=== PATIENT | female | born 1940 | race Caucasian/White ===

== ENCOUNTER → 2016-10-03 | Outpatient (CLI) | payer MEDICARE ==
[~2016-10-03] MED LIST: DILT120C49 PO
== END ==
LOC: CLAB 09:38
DX: R10.9 Unspecified abdominal pain (principal); R05 Cough; J44.9 Chronic obstructive pulmonary disease, unspecified
CPT/HCPCS: 87338

== ENCOUNTER 2017-01-02 08:53 | Day surgery (SDC) | payer MEDICARE ==
[~2017-01-02] VITALS: Ht 162.6 cm; Wt 45.5 kg
[~2017-01-02 08:53] MED LIST changes: +DILT-60 PO; -DILT120C49 PO
[2017-01-02] MEDS ORDERED: ONDANSETRON HCL 4 MG/2 ML VIAL IV PUSH ONE (08:56)
[2017-01-02] MEDS ORDERED: PROPOFOL 200 MG/20 ML AMP IV ONE (08:56)
[2017-01-02] MEDS ORDERED: POVIDONE IODINE 5% (ANTISEPSIS KIT) 4 APPLICATIONS EACH NARE PRN (09:15)
[2017-01-02] MEDS ORDERED: SODIUM CHLORID 0.9% 500 ML IV PRN (09:15)
[2017-01-02] MEDS ORDERED: METOPROLOL TARTRATE 25 MG TAB PO PRN (09:15)
[2017-01-02] MEDS ORDERED: LACTATED RINGER'S 1000 ML IV PRN (09:15)
[2017-01-02] MEDS ORDERED: CHLORHEXIDINE GLUCONATE 2 % 1 PACK (2 CLOTHS) TOPICAL PRN (09:15)
[2017-01-02] MEDS ORDERED: INSULIN HUMAN REGULAR 1,000 UNITS/10 ML VIAL SQ PRN (09:15)
[2017-01-02 09:45] VITALS: BP 167/77; PULSE 92; RESP 20; TEMP 98.4; O2SAT 94
[2017-01-02 10:12] LABS: BASOPHIL % 0.5 % (0.0-2.0); EOSINOPHIL # 0.1 TH/MM3 (0-0.4); EOSINOPHIL % 0.9 % (0.0-4.0); HEMATOCRIT 46.5 % (35.0-46.0); HEMO FLAGS DIFF FINAL; LYMPH % 28.9 % (9.0-44.0); MEAN CELL VOLUME 89.3 FL (80.0-100.0); MEAN CORPUSCULAR HEMOGLOBIN 29.4 PG (27.0-34.0); MEAN CORPUSCULAR HGB CONC 32.9 % (32.0-36.0); MONO % 11.8 % (0.0-8.0); NEUT % 57.9 % (16.0-70.0); PLATELET COUNT 191 TH/MM3 (150-450); RED BLOOD COUNT 5.21 MIL/MM3 (4.00-5.30); RED CELL DISTRIBUTION WIDTH 14.2 % (11.6-17.2); WHITE BLOOD COUNT 10.4 TH/MM3 (4.0-11.0)
[2017-01-02 10:20] LABS: APTT (PATIENT) 29.7 SEC (24.3-30.1); PROTHROMBIN TIME - PATIENT 10.6 SEC (9.8-11.6)
[2017-01-02 10:23] LABS: BICARBONATE 28.3 MEQ/L (21.0-32.0); POTASSIUM 3.4 MEQ/L (3.5-5.1)
[2017-01-02] MEDS ORDERED: FAMOTIDINE 20 MG/2 ML VIAL ONE (11:26)
[2017-01-02] MEDS ORDERED: LIDOCAINE HCL 1% 50 ML VIAL ONE (11:55)
[2017-01-02] MEDS ORDERED: DO NOT ADM ANY ANTICOAGULANT DRUGS PRN (12:10)
[2017-01-02] MEDS ORDERED: RESP: ALBUTEROL 2.5 MG/IPRATROPIUM 0.5 MG NEB (PRN) NEB (12:30)
--- NOTE | 2017-01-02 12:59 | MP ---
cc: FADY MOELLER MD, JOHN DATE OF PROCEDURE 01/02/2017 PROCEDURE Fiberoptic bronchoscopy with brushings, washings and lavage. PREOPERATIVE DIAGNOSIS Bronchiectasis with bilateral lung infiltrates. POSTOPERATIVE DIAGNOSIS Bilateral lung infiltrates. ANESTHESIA General with LMA. OPERATING PHYSICIAN Dr. Dilma Fernandez PROCEDURE AND FINDINGS The patient was sedated with IV Diprivan. LMA was used and placed against the larynx. The Olympus IT 180 bronchoscope was used to visualize the bronchi. The scope was advanced via the LMA into the trachea. The trachea and aleta appeared normal. The scope was then advanced into the right mainstem and right upper lobe segmental bronchi. These bronchi demonstrated no gross endobronchial lesions. There was mild endobronchitis with mucoid secretions and plugs; these were suctioned out. Next the scope was advanced into the right middle and right lower lobes and segmental bronchi. These bronchi demonstrated mucous plugs and moderate endobronchitis. No endobronchial lesions were seen. There is mucous secretions were suctioned. Saline washings and lavage were done. Brushings were done for micro and cytology from the right lower lobe area. The scope was then advanced into the left mainstem and left upper lobe segmental bronchi. These bronchi demonstrated mild endobronchitis with mucoid secretions. These were suctioned out. Saline washings were done. Next, the left lower lobe segmental bronchi were visualized which demonstrated mucosal edema and moderate endobronchitis. Saline lavage and washings were done and the procedure was then terminated. The patient tolerated the procedure well. MD KESHA Tee/MEHUL /12:27 PM /12:57 PM
--- NOTE | 2017-01-02 13:09 | RADRPT ---
EXAM DATE/TIME: 01/02/2017 12:31 [place] COMPARISON: No previous studies available for comparison. INDICATIONS : Post bronchoscopy, coughing MEDICAL HISTORY : SVT SURGICAL HISTORY : None. ENCOUNTER: Initial ACUITY: 1 day PAIN SCORE: 0/10 LOCATION: Bilateral chest FINDINGS: A single view of the chest demonstrates hyperinflation which can be seen with COPD. No infiltrates a re seen. Heart is normal in size. The mediastinal contours are unremarkable. Osseous structures are intact. CONCLUSION: Hyperinflation which can be seen with COPD. No evidence for an infiltrate. . Jordy Bill MD on January 02, 2017 at 13:06 Board Certified Radiologist. This report was verified electronically.
[2017-01-02 17:48] VITALS: BP 133/87; PULSE 113; RESP 18; TEMP 97.7; O2SAT 91
--- NOTE | 2017-01-02 19:53 | EKG ---
Date Performed: 01/02/2017 Time Performed: 10:10:39 PTAGE: 76 years EKG: Sinus rhythm POSSIBLE LEFT ATRIAL ENLARGEMENT POSSIBLE RIGHT VENTRICULAR CONDUCTION DELAY NONSPECIFIC ST & T-WAVE ABNORMALITY ABNORMAL ECG PREVIOUS TRACING : 01/21/2013 22.53 Since previous tracing, no significant change noted DOCTOR: Robyn Norris Interpretating Date/Time 01/02/2017 19:51:31
[2017-01-02 20:00] VITALS: BP 164/77; PULSE 111; RESP 20; TEMP 100.7; O2SAT 92
[2017-01-02] MEDS ORDERED: POTASSIUM CHLORIDE 20 MEQ CONTROLLED RELEASE TAB PO ONE (20:00)
[2017-01-02] MEDS ORDERED: DILTIAZEM-CD 120 MG CAP ER PO ONE (20:00)
[2017-01-02] MEDS: AMOXICILLIN/CLAVULANATE K 500 MG TAB PO SCH (20:17)
[2017-01-03] VITALS: BP 165/73; PULSE 124; RESP 20; TEMP 100.2; O2SAT 90
[2017-01-03 01:15] VITALS: BP 131/64; PULSE 114; RESP 18; O2SAT 95
[2017-01-03 04:00] VITALS: BP 113/64; PULSE 89; RESP 20; TEMP 97.1; O2SAT 92
[2017-01-03 07:57] VITALS: BP 117/56; PULSE 88; RESP 18; TEMP 97.8; O2SAT 92
[2017-01-03] MEDS: AMOXICILLIN/CLAVULANATE K 500 MG TAB PO SCH (08:05)
[2017-01-03 10:00] VITALS: O2SAT 94
[2017-01-03 12:18] VITALS: BP 121/65; PULSE 82; RESP 17; TEMP 98; O2SAT 95
[2017-01-03] MEDS ORDERED: AMOX500C PO (14:23)
[2017-01-03] MEDS ORDERED: DILTIAZEM-CD 120 MG CAP ER PO SCH (21:00)
== END 2017-01-03 15:05 | disposition home or self-care (01) ==
LOC: HSDC 08:53 → N05A 17:42 → HSDC 01-03 15:05
DX: J47.9 Bronchiectasis, uncomplicated (principal); R91.8 Other nonspecific abnormal finding of lung field; R94.31 Abnormal electrocardiogram [ECG] [EKG]
CPT/HCPCS: 00520; 31623; 31624; 71010; 80048; 85025; 85610; 85730; 87015; 87070; 87071; 87077; 87102; 87116; 87186; 87205; 87206; 88112; 93005; J2405

== ENCOUNTER → 2017-08-29 | Outpatient (CLI) | payer MEDICARE ==
[~2017-08-29] MED LIST changes: +AMOX500C PO; -DILT-60 PO; +DILT120C50 PO
[2017-08-29 10:05] LABS: HEMATOCRIT 46.2 % (35.0-46.0); HEMOGLOBIN 15.8 GM/DL (11.6-15.3); MEAN CORPUSCULAR HEMOGLOBIN 31.5 PG (27.0-34.0); MEAN CORPUSCULAR HGB CONC 34.3 % (32.0-36.0); MEAN PLATELET VOLUME 8.9 FL (7.0-11.0); PLATELET COUNT 193 TH/MM3 (150-450); RED BLOOD COUNT 5.02 MIL/MM3 (4.00-5.30); RED CELL DISTRIBUTION WIDTH 13.9 % (11.6-17.2); WHITE BLOOD COUNT 8.6 TH/MM3 (4.0-11.0)
[2017-08-29 10:28] LABS: ALT (GPT) 20 U/L (10-53); CHOLESTEROL 212 MG/DL (120-200)
[2017-08-29 10:29] LABS: ALBUMIN 3.9 GM/DL (3.4-5.0); AST (GOT) 28 U/L (15-37); BICARBONATE 26.3 MEQ/L (21.0-32.0); BLOOD UREA NITROGEN 21 MG/DL (7-18); CHLORIDE 104 MEQ/L (98-107); GLOMERULAR FILTRATION RATE 43 ML/MIN (>89); GLUCOSE,FASTING 104 MG/DL (74-99); SODIUM (NA) 141 MEQ/L (136-145)
[2017-08-29 10:38] LABS: ALKALINE PHOSPHATASE 95 U/L (45-117); CHOLESTEROL/ HDL RATIO 2.95 RATIO; HDL CHOLESTEROL 71.7 MG/DL (40.0-60.0); LDL CHOLESTEROL 125 MG/DL (0-99); TOTAL BILIRUBIN ADULT 0.9 MG/DL (0.2-1.0); TOTAL PROTEIN 8.1 GM/DL (6.4-8.2); TRIGLYCERIDES 75 MG/DL (42-150)
== END ==
LOC: CLAB 09:17
DX: J44.9 Chronic obstructive pulmonary disease, unspecified (principal); R06.00 Dyspnea, unspecified; R05 Cough; E03.9 Hypothyroidism, unspecified; I10 Essential (primary) hypertension
CPT/HCPCS: 36415; 80053; 80061; 84443; 85027

== ENCOUNTER 2018-03-15 17:56 | Inpatient (IN) ==
[2018-03-15] MEDS ORDERED: Morphine Sulfate Inj 2 MG/ML Vial IV.PUSH ONE (18:13)
--- NOTE | 2018-03-15 18:30 | ED ---
HPI General Chief Complaint: Respiratory Symptoms Stated Complaint: Fall / SOB Time Seen by Provider: 03/15/18 18:04 Source: patient Mode of arrival: ambulatory Limitations: no limitations History of Present Illness The patient is a 77-year-old female who presents to the emergency department via EMS for shortness of breath and left hip pain. The patient has a history of COPD and is followed by her primary physician/dough raiser, Dr. Elliott, who recently placed the patient on antibiotics via a right upper extremity PICC line. The patient states that the bacteria that is infecting her lungs started with the letters "C "and she is currently on Invanz once daily. The patient believes that the Invanz is making her shortness of breath worse. She does note increasing work of breathing and shortness of breath which was slightly improved with oxygen administered by EMS. EMS also gave the patient Solu-Medrol 125 mg intravenously and a breathing treatment prior to arrival. The patient also states she tripped and fell earlier today while taking a corner, fell on her left hip. The patient complains of pain over the lateral left hip that is worse with weightbearing and alleviated at rest. She denies any history of previous fractures to the left hip, but does have a history of previous fracture to the right tibia secondary to skiing. She does not have a local orthopedist. Symptoms are moderate. The patient is not on home oxygen and was noted to be satting in the 70s per EMS. MD Complaint: shortness of breath Onset (ago): hour(s) Context: recent illness and occurred during exertion Severity: moderate Consistency/Duration: constant Relieving factors: nothing Exacerbating factors: new medication Known history of: COPD Associated symptoms: other Treatment prior to arrival: oxygen, bronchodilator and other Related Data Home oxygen amount: none Home Medications Medication Instructions Recorded Confirmed diltiazem HCl 120 mg PO HS 01/15/18 03/15/18 ertapenem [Invanz] 1 g IV DAILY 03/14/18 03/15/18 Allergies Allergy/AdvReac Type Severity Reaction Status Date / Time sulfamethoxazole Allergy Tachycardia Verified 03/15/18 18:58 [From Bactrim] trimethoprim [From Bactrim] Allergy Tachycardia Verified 03/15/18 18:58 *MDRO Multi-Drug Resistant AdvReac Unknown n/a Uncoded 03/15/18 13:02 Organism Review of Systems ROS: all other systems reviewed are negative [facility] Social History Social History Substance History: No History of Abuse Second Hand Smoke Exposure: No Smoking Status: Former smoker How Often Do You Have a Drink Containing Alcohol: Never Recent Travel in [facility] within the Last 8 Weeks: No Recent Out of Country Travel within the Last 8 Weeks: No Exam Narrative Exam Narrative: GENERAL: Awake, alert, pleasant 77-year-old female who appears her stated age and is in mild respiratory distress. SKIN: Focused skin assessment warm/dry. HEAD: Atraumatic. Normocephalic. EYES: Pupils equal and round. No scleral icterus. No injection or drainage. ENT: No nasal bleeding or discharge. Mucous membranes pink and moist. NECK: Trachea midline. No JVD. CARDIOVASCULAR: Regular, tachycardic with a heart rate of 115. RESPIRATORY: Tachypnea with a respiratory rate of 22. Diminished breath sounds in the bases bilateral with prolonged expiratory phase and rales noted in the left lower lobe. GASTROINTESTINAL: Abdomen soft, non-tender, nondistended. Hepatic and splenic margins not palpable. MUSCULOSKELETAL: No obvious leg length shortening. Positive dorsalis pedal pulse. The patient will flex the left hip at the hip and knee to 45 degrees, has tenderness over the lateral aspect the left leg. NEUROLOGICAL: Awake and alert. No obvious cranial nerve deficits. Motor grossly within normal limits. Normal speech. Nonfocal. PSYCHIATRIC: Appropriate mood and affect; insight and judgment normal. Course Reevaluation(s) Reevaluation #1: Transfer of care note, patient assumed in care from transfer at [address] Rodriguez, with history of left hip pain after fall from ground-level, with initial negative x-ray, and patient was awaiting CT scan, but spontaneously developed supraventricular tachycardia, which patient has a past history of, but none recently, at least in the past year or so. She takes Cardizem for this, has been taking her medication regularly, but has recently been diagnosed with pneumonia, is being treated with intravenous Invanz infusions, under the care of her infectious disease specialist, Dr. Tse, and her dough raiser, Dr. Galindo. On my examination, I find an elderly woman, with a stable blood pressure, but a rapid heart rate in the 180-190 range, which is regular and narrow base, typical of supraventricular tachycardia. Patient was treated with several rounds of intravenous adenosine, at his escalating dosage, with very brief conversion to sinus rhythm, lasting no more than 10-15 seconds before reverting to SVT. Patient was subsequently treated with intravenous metoprolol, which converted her to sinus, but this lasted for about 15-20 minutes, patient retroverted back to supraventricular tachycardia. Esmolol drip was begun, but patient sustained hypotensive reaction to this, with blood pressure dropping to the 87/50 range, requiring fluid rehydration, and preparations for emergent cardioversion, but patient converted back spontaneously prior to performance of procedure. Cardizem drip was initially ordered, but this was ultimately never instituted, as arrangements for admission were initiated, and preference for patient to resume her regular medication. CT scan ultimately was able to be performed, results are pending, patient is more stable at time of dictation, blood pressure is 106/70, with heart rate of 93, but will need observation for possible recurrence. Patient will be given oral Cardizem, extended release, and admitted for observation, after consultation with Dr. Kushal Mcclain. Time: 21:39 Initial Documented Vital Signs Temperature 97.6 F 03/15/18 18:07 Pulse Rate 124 H 03/15/18 18:07 Respiratory Rate 20 03/15/18 18:07 Blood Pressure 199/88 H 03/15/18 18:07 Pulse Oximetry 76 L 03/15/18 18:07 Last Documented Vital Signs Temperature 97.8 F 03/16/18 15:00 Pulse Rate 86 03/16/18 18:00 Respiratory Rate 18 03/16/18 15:00 Blood Pressure 129/69 03/16/18 15:00 Pulse Oximetry 93 L 03/16/18 15:00 Critical Care Time Critical Care Time: Yes Total Critical Care Time: 30 Attestation: 30 minutes of critical care time was provided in direct bedside health care assistant for this patient with multiple recurrent episodes of supraventricular tachycardia with associated hypotension, which placed patient at imminent risk of decompensation without immediate stabilizing treatment, this treatment required multiple rounds of medications, including alterations of medications for treatment failure, and fluid management for hypotensive episodes during patient's treatment. No billable procedures were performed during this patient' s encounter. Medical Decision Making MDM Narrative Medical decision making narrative: IV was established, labs are drawn and sent, and the patient was placed on cardiac telemetry monitoring and continuous pulse oximetry monitoring. EKG was ordered and interpreted. Chest x-ray was obtained. X-ray of the pelvis and left hip were obtained. Medical Screen Exam Complete: Yes Emergency Medical Condition: Yes Differential Diagnosis Differential Diagnosis: Differential diagnosis includes COPD exacerbation, pleural effusion, pulmonary embolism, pneumothorax, hemothorax, fat embolism, pneumonia. Lab Data Result diagrams: 03/16/18 06:00 03/16/18 06:00 Lab Results 03/15/18 03/15/18 03/15/18 Range/Units 18:15 18:15 22:06 WBC 10.1 (4.0-11.0) th/mm3 RBC 5.31 H (4.00-5.30) mil/mm3 Hgb 16.0 H (11.6-15.3) gm/dL Hct 48.7 H (35.0-46.0) % MCV 91.7 (80.0-100.0) fL MCH 30.2 (27.0-34.0) pg MCHC 32.9 (32.0-36.0) % RDW 14.0 (11.6-17.2) % Plt Count 150 (150-450) th/mm3 MPV 9.5 (7.0-11.0) fL Neut % (Auto) 67.5 (16.0-70.0) % Lymph % (Auto) 21.5 (9.0-44.0) % [place] % (Auto) 10.1 H (0.0-8.0) % Eos % (Auto) 0.4 (0.0-4.0) % Baso % (Auto) 0.5 (0.0-2.0) % Neut # (Auto) 6.8 (1.8-7.7) th/mm3 Lymph # (Auto) 2.2 (1.0-4.8) th/mm3 [place] # (Auto) 1.0 H (0.0-0.9) th/mm3 Eos # (Auto) 0.0 (0.0-0.4) th/mm3 Baso # (Auto) 0.0 (0.0-0.2) th/mm3 WBC Differential . Differential Comment Auto diff final PT (9.8-11.6) sec INR Ratio APTT (24.3-30.1) sec D-Dimer Quant (PE/DVT) (0.00-0.50) mg/L FEU Puncture Site Right radial Patient Temperature 98.6 O2 Saturation 94 (90-100) % ABG pH 7.37 L (7.380-7.420) ABG pCO2 34 L (38-42) mmHg ABG pO2 84 (61-120) mmHg ABG HCO3 19 L (22-26) mmol/L ABG O2 Content 20.5 H (12.0-20.0) Vol % ABG Base Excess -5.2 L (-2-2) mmol/L ABG Methemoglobin 0.5 (0-2) % [place]ville Test + Hemoglobin 15.5 (12.0-16.0) G/DL Carboxyhemoglobin 0.8 (0-4) % O2 Delivery Device Nasal cannula Liter Flow 6.00 L/M Critical Value No Sodium 137 (136-145) meq/L Potassium 4.1 (3.5-5.1) meq/L Chloride 101 (98-107) meq/L Carbon Dioxide 25.9 (21.0-32.0) meq/L Anion Gap 10 (5-15) meq/L BUN 20 H (7-18) mg/dL Creatinine 1.19 H (0.50-1.00) mg/dL Estimated GFR 44 L (>89) mL/min Random Glucose 157 H (74-106) mg/dL Calcium 8.8 (8.5-10.1) mg/dL Magnesium 2.2 (1.5-2.5) mg/dL Total Bilirubin 0.5 (0.2-1.0) mg/dL AST 29 (15-37) U/L ALT 32 (10-53) U/L Alkaline Phosphatase 90 (45-117) U/L Total Creatine Kinase 63 (26-192) U/L Troponin I 0.03 (0.02-0.05) ng/mL Total Protein 7.8 (6.4-8.2) g/dL Albumin 3.5 (3.4-5.0) g/dL 03/15/18 03/15/18 03/16/18 Range/Units 22:40 22:40 00:30 WBC (4.0-11.0) th/mm3 RBC (4.00-5.30) mil/mm3 Hgb (11.6-15.3) gm/dL Hct (35.0-46.0) % MCV (80.0-100.0) fL MCH (27.0-34.0) pg MCHC (32.0-36.0) % RDW (11.6-17.2) % Plt Count (150-450) th/mm3 MPV (7.0-11.0) fL Neut % (Auto) (16.0-70.0) % Lymph % (Auto) (9.0-44.0) % [place] % (Auto) (0.0-8.0) % Eos % (Auto) (0.0-4.0) % Baso % (Auto) (0.0-2.0) % Neut # (Auto) (1.8-7.7) th/mm3 Lymph # (Auto) (1.0-4.8) th/mm3 [place] # (Auto) (0.0-0.9) th/mm3 Eos # (Auto) (0.0-0.4) th/mm3 Baso # (Auto) (0.0-0.2) th/mm3 WBC Differential Differential Comment PT 11.2 (9.8-11.6) sec INR 1.1 Ratio APTT 24.4 32.0 H D (24.3-30.1) sec D-Dimer Quant (PE/DVT) Greater than 35.20 H (0.00-0.50) mg/L FEU Puncture Site Patient Temperature O2 Saturation (90-100) % ABG pH (7.380-7.420) ABG pCO2 (38-42) mmHg ABG pO2 (61-120) mmHg ABG HCO3 (22-26) mmol/L ABG O2 Content (12.0-20.0) Vol % ABG Base Excess (-2-2) mmol/L ABG Methemoglobin (0-2) % [place]ville Test Hemoglobin (12.0-16.0) G/DL Carboxyhemoglobin (0-4) % O2 Delivery Device Liter Flow L/M Critical Value Sodium (136-145) meq/L Potassium (3.5-5.1) meq/L Chloride (98-107) meq/L Carbon Dioxide (21.0-32.0) meq/L Anion Gap (5-15) meq/L BUN (7-18) mg/dL Creatinine (0.50-1.00) mg/dL Estimated GFR (>89) mL/min Random Glucose (74-106) mg/dL Calcium (8.5-10.1) mg/dL Magnesium (1.5-2.5) mg/dL Total Bilirubin (0.2-1.0) mg/dL AST (15-37) U/L ALT (10-53) U/L Alkaline Phosphatase (45-117) U/L Total Creatine Kinase (26-192) U/L Troponin I (0.02-0.05) ng/mL Total Protein (6.4-8.2) g/dL Albumin (3.4-5.0) g/dL 03/16/18 03/16/18 Range/Units 06:00 06:00 WBC 17.3 H D (4.0-11.0) th/mm3 RBC 4.76 (4.00-5.30) mil/mm3 Hgb 14.5 (11.6-15.3) gm/dL Hct 43.7 (35.0-46.0) % MCV 91.9 (80.0-100.0) fL MCH 30.4 (27.0-34.0) pg MCHC 33.1 (32.0-36.0) % RDW 13.9 (11.6-17.2) % Plt Count 119 L (150-450) th/mm3 MPV 10.0 (7.0-11.0) fL Neut % (Auto) 92.7 H (16.0-70.0) % Lymph % (Auto) 4.7 L (9.0-44.0) % [place] % (Auto) 2.4 (0.0-8.0) % Eos % (Auto) 0.0 (0.0-4.0) % Baso % (Auto) 0.2 (0.0-2.0) % Neut # (Auto) 16.0 H (1.8-7.7) th/mm3 Lymph # (Auto) 0.8 L (1.0-4.8) th/mm3 [place] # (Auto) 0.4 (0.0-0.9) th/mm3 Eos # (Auto) 0.0 (0.0-0.4) th/mm3 Baso # (Auto) 0.0 (0.0-0.2) th/mm3 WBC Differential . Differential Comment Auto diff final PT (9.8-11.6) sec INR Ratio APTT (24.3-30.1) sec D-Dimer Quant (PE/DVT) (0.00-0.50) mg/L FEU Puncture Site Patient Temperature O2 Saturation (90-100) % ABG pH (7.380-7.420) ABG pCO2 (38-42) mmHg ABG pO2 (61-120) mmHg ABG HCO3 (22-26) mmol/L ABG O2 Content (12.0-20.0) Vol % ABG Base Excess (-2-2) mmol/L ABG Methemoglobin (0-2) % [place] Test Hemoglobin (12.0-16.0) G/DL Carboxyhemoglobin (0-4) % O2 Delivery Device Liter Flow L/M Critical Value Sodium 141 (136-145) meq/L Potassium 4.2 (3.5-5.1) meq/L Chloride 108 H (98-107) meq/L Carbon Dioxide 24.3 (21.0-32.0) meq/L Anion Gap 9 (5-15) meq/L BUN 17 (7-18) mg/dL Creatinine 0.99 (0.50-1.00) mg/dL Estimated GFR 54 L (>89) mL/min Random Glucose 210 H (74-106) mg/dL Calcium 7.9 L D (8.5-10.1) mg/dL Magnesium (1.5-2.5) mg/dL Total Bilirubin 0.6 (0.2-1.0) mg/dL AST 61 H (15-37) U/L ALT 64 H (10-53) U/L Alkaline Phosphatase 79 (45-117) U/L Total Creatine Kinase (26-192) U/L Troponin I (0.02-0.05) ng/mL Total Protein 6.5 D (6.4-8.2) g/dL Albumin 2.9 L D (3.4-5.0) g/dL Imaging Data Radiologist's impression: Chest X-Ray 03/15/18 18:13 CONCLUSION: No acute findings. Chronic interstitial changes in both lungs. Hip X-Ray 03/15/18 18:13 CONCLUSION: No fracture seen. Pelvis CT 03/15/18 19:11 CONCLUSION: 1. Mildly comminuted nondisplaced fractures of the left inferior pubic ramus. Chest CTA 03/16/18 00:00 CONCLUSION: 1. No pulmonary embolus. 2. Bronchiectasis and patchy, presumably infectious or inflammatory infiltrate of both bases. 3. Tiny bilateral pleural effusions. 4. 7 mm nodules in the right lower and upper lobes and a few scattered sub-4 mm bilateral pulmonary nodules. Six-month follow-up noncontrast chest CT is Coronary artery calcification. ECG Data EKG Prior to Arrival: No Attestation: I personally reviewed and interpreted this ECG as follows: Interpretation: EKG reveals sinus tachycardia with a heart rate of 116. Left atrial enlargement. Nonspecific ST-T wave changes. QTC prolongation of 493. EKG taken at 1917 hrs. shows a narrow complex tachycardia at 194 bpm, compatible with supraventricular tachycardia, showing borderline right axis deviation with 96 degrees, but with minor nonspecific ST T wave depression, possibly suggestive of ischemia in the inferior and anterior lateral segments, with no acute elevations suggestive of acute STEMI. IL interval is undeterminable, and QT interval is normal at 311 ms corrected. QRS interval is 88 ms. This is an abnormal tracing, primarily significant for supraventricular tachycardia. EKG taken at 2042 hrs. shows reversion to sinus rhythm, with a borderline tachycardia of 109 bpm. This is an improvement from the previous tracing 1 hour earlier. QRS morphology is normal, QRS axis remains minimally changed at 87 degrees, QRS duration is 78 ms. IL interval is now normal at 171 ms, QT interval is normal at [address] segments show normalization of inferior and anterior lateral depression, T waves are upright, and there is no evidence of acute myocardial infarction. This shows an improvement from the prior tracing. Discharge Plan Discharge Disposition Patient Disposition: 30 Still Patient Discharge Condition Condition: Stable Discharge Details Diagnosis: SVT (supraventricular tachycardia), Acute hip pain Physicians Team ED Provider: Chris Jurado Attending Provider: Greyson Liu Other Providers: Julio Hagan V ; Mitul Will ; Zhao Dyer ; Milagros Tse Status ED Status: Left Department Discharge Information Discharge Date/Time: 03/15/18 23:50
--- NOTE | 2018-03-15 18:48 | XR ---
EXAM DATE: 03/15/2018 6:13 PM EDT AGE/SEX: 77 years / Female INDICATIONS: Evaluate chest for trauma, fell CLINICAL DATA: This is the patient's initial encounter. Patient reports that signs and symptoms have been present for 1 day and indicates a pain score of 0/10. MEDICAL/SURGICAL HISTORY: . Chronic obstructive pulmonary disease. Gastrointestinal bleed. Irre gular heart rhythm. . Bronchoscopy, PICC line placement COMPARISON: [facility], CHEST 1V SINGLE AP, 01/15/2018. . FINDINGS: Right PICC line catheter tip projects over the mid superior vena cava. Chronic interstitial opacities in the central middle bilateral lungs similar in severity to prior examination. The heart is normal in size. Stable 1 mm granuloma right upper lung. No evidence of pneumothorax. CONCLUSION: No acute findings. Chronic interstitial changes in both lungs. Electronically signed by: Daniel Ramirez MD 03/15/2018 6:47 PM EDT
--- NOTE | 2018-03-15 18:58 | XR ---
EXAM DATE: 03/15/2018 6:13 PM EDT AGE/SEX: 77 years / Female INDICATIONS: Left hip pain, fell CLINICAL DATA: This is the patient's initial encounter. Patient reports that signs and symptoms have been present for 1 day and indicates a pain score of 6/10. MEDICAL/SURGICAL HISTORY: . Chronic obstructive pulmonary disease. Gastrointestinal bleed. Irr egular heart rhythm. . Bronchoscopy, PICC line placement COMPARISON: No prior exams available for comparison. FINDINGS: Diffuse osteopenia. The bony pelvic ring is grossly intact. The left hip is intact with preservation of the primary and secondary trabecular. Calcified phleboliths in the pelvis. A foreign bodies. CONCLUSION: No fracture seen. Electronically signed by: Daniel Ramirez MD 03/15/2018 6:57 PM EDT
[2018-03-15] MEDS ORDERED: Adenosine Inj 6 MG/2 ML Syringe IV.PUSH ONE ×4 (19:15→20:43)
[2018-03-15 19:18] LABS: Baso % (Auto) 0.5 % (0.0-2.0); Eos % (Auto) 0.4 % (0.0-4.0); Hematocrit 48.7 % (35.0-46.0); Lymph # (Auto) 2.2 th/mm3 (1.0-4.8); Lymph % (Auto) 21.5 % (9.0-44.0); Mean Corpuscular HGB Conc 32.9 % (32.0-36.0); Mean Corpuscular Hemoglobin 30.2 pg (27.0-34.0); Mean Corpuscular Volume 91.7 fL (80.0-100.0); Mean Platelet Volume 9.5 fL (7.0-11.0); Mono % (Auto) 10.1 % (0.0-8.0); Neut # (Auto) 6.8 th/mm3 (1.8-7.7); Neut % (Auto) 67.5 % (16.0-70.0); Platelet Count 150 th/mm3 (150-450); Red Blood Count 5.31 mil/mm3 (4.00-5.30); White Blood Count 10.1 th/mm3 (4.0-11.0)
[2018-03-15] MEDS ORDERED: Metoprolol Inj 5 MG/5 ML Vial IV.PUSH PRN (19:25)
[2018-03-15] MEDS ORDERED: Esmolol 2,500 mg/250 mL Premix 2,500 MG/250 ML BAG IV.CONT ONE (19:27)
[2018-03-15 19:38] LABS: Alanine Aminotransferase 32 U/L (10-53)
[2018-03-15 19:46] LABS: Albumin 3.5 g/dL (3.4-5.0); Alkaline Phosphatase 90 U/L (45-117); Anion Gap 10 meq/L (5-15); Aspartate Aminotransferase 29 U/L (15-37); Blood Urea Nitrogen 20 mg/dL (7-18); Calcium 8.8 mg/dL (8.5-10.1); Carbon Dioxide 25.9 meq/L (21.0-32.0); Chloride 101 meq/L (98-107); Glomerular Filtration Rate 44 mL/min (>89); Glucose,Random 157 mg/dL (74-106); Magnesium 2.2 mg/dL (1.5-2.5); Potassium 4.1 meq/L (3.5-5.1); Sodium 137 meq/L (136-145); Total Protein 7.8 g/dL (6.4-8.2); Troponin I 0.03 ng/mL (0.02-0.05)
[2018-03-15 19:55] LABS: Creatine Kinase 63 U/L (26-192)
[2018-03-15] MEDS ORDERED: Esmolol Bolus Inj 100 MG/10 ML Vial IV.PUSH ONE (20:20)
[2018-03-15] MEDS: Sod Chloride 0.9% Inj 1,000 ML IV.CONT SCH ×2 (20:30→22:43)
[2018-03-15] MEDS ORDERED: dilTIAZem Inj 125 MG in Sodium Chlor 0.9% Inj 100 ML IV.CONT PRN (20:55)
[2018-03-15] MEDS ORDERED: dilTIAZem CD 120 MG Capsule PO SCH (21:15)
[2018-03-15] MEDS ORDERED: Bisacodyl 10 MG Supp RECTAL PRN (21:16)
[2018-03-15] MEDS ORDERED: Heparin - SQ 10,000 UNITS/ML Vial SQ SCH (21:30)
--- NOTE | 2018-03-15 21:53 | CT ---
EXAM DATE: 03/15/2018 7:19 PM EDT AGE/SEX: 77 years / Female INDICATIONS: Possible pelvis fracture. Left leg "gave out" and patient fell. CLINICAL DATA: This is the patient's initial encounter. Patient reports that signs and symptoms have been present for 1 day and indicates a pain score of 10/10. MEDICAL/SURGICAL HISTORY: None. None. RADIATION DOSE: 7.44 CTDI (mGy) COMPARISON: No prior exams available for comparison. TECHNIQUE: Multiple contiguous axial images were obtained through the pelvis without contrast. Imag es were obtained using multiple row detector helical technique. . Using automated exposure control an d adjustment of the mA and/or kV according to patient size, radiation dose was kept as low as reasona dino achievable to obtain optimal diagnostic quality images. DICOM format image data is available shanna ctronically for review and comparison. FINDINGS: Diffuse osteopenia. There is a mildly comminuted fracture of the left inferior pubic ramus without s ignificant displacement. Remainder of the bony pelvic ring is intact.. The proximal femora are intact . Moderate degenerative changes in both SI joints. Advanced hypertrophic degenerative changes in the posterior elements of the lower lumbar spine. Bladder contour is smooth. No evidence of free fluid in the pelvis. Multiple calcified phleboliths in the pelvis. Inguinal region is unremarkable. CONCLUSION: 1. Mildly comminuted nondisplaced fractures of the left inferior pubic ramus. Electronically signed by: Daniel Ramirez MD 03/15/2018 9:52 PM EDT
[2018-03-15 22:23] LABS: ABG Base Excess -5.2 mmol/L (-2-2); ABG PCO2 34 mmHg (38-42); ABG PO2 84 mmHg (61-120)
[2018-03-15] MEDS: dilTIAZem Inj 125 MG in Sodium Chlor 0.9% Inj 100 ML IV.CONT PRN (22:41)
[2018-03-15] MEDS ORDERED: Heparin 10,000 UNITS/10 ML Vial (for IV use) IV.PUSH STA (23:50)
[2018-03-15] MEDS ORDERED: Heparin Drip 25,000 UNIT/250 ML BAG IV.CONT PRN (23:52)
--- NOTE | 2018-03-16 00:08 | P.HPIM ---
History of Present Illness Primary Care Physician: Julio Elliott History of Present Illness: 77-year-old female with a history of bronchitis, recent placement of PICC line 3 days ago on treatment with Invanz, as well as a history of SVT who presents status post mechanical fall (tripped in her kitchen ) with injury to left hip. She says she is unable to support her weight on left hip. Hip x-ray negative for fracture. During her stay in the ER, patient found to have SVT with heart rate up to the 160s. This is improved with IV diltiazem now back in sinus rhythm. Patient reports feeling lightheaded and short of breath in the ER while heart rate was in the 160s. She says that shortness of breath has resolved. She says she has been feeling all right over the past few days. Says that bronchitis as much improved. Patient denies any chest pain. Inpatient Certification: I certify that the inpatient services were ordered in accordance with Medicare regulations governing the order. This includes certification that hospital inpatient services are reasonable and necessary and in the case of services not specified as inpatient-only under 42 CFR 419.22(n), that they are appropriately provided as inpatient services in accordance to with the 2-midnight benchmark under 43 CFR 412.3(e) Estimated Total Length of Stay (Days): 2 Plans for Post Hospital Care: Home Review of Systems All other systems reviewed negative except as stated in [facility] - History History Provided By: Patient - Medical History Medical History: Medical History (Last Updated 03/15/18 @ 18:22 by [employer]) SVT (supraventricular tachycardia) (Acute) Lung infection - Surgical History Surgical History: Surgical History (Last Reviewed 03/15/18 @ 18:21 by [employer]) History of facelift (Acute) History of bronchoscopy (Acute) - Family History Family History: Family History (Last Updated 03/16/18 @ 00:02 by Kushal Mcclain MD) Mother Heart disease - Tobacco History Second Hand Smoke Exposure: No Tobacco Use In Past 30 Days: No Smoking Status: Former smoker - Alcohol History How Often Do You Have a Drink Containing Alcohol: Never - Substance Use History Substance History: No History of Abuse - Travel History Recent Travel in the [place] Within the Last 8 Weeks: No Recent Travel Out of the Country Within the Last 8 Weeks: No - Immunization History Tetanus Immunization: Unsure Hx Influenza Vaccine This Season: No Medications and Allergies Active Medications: Active Medications Al Hydroxide/Mg Hydroxide (Milk Of Magnesia Liq) 30 ml PO Q12H PRN PRN Reason: Mild Constipation Bisacodyl (Dulcolax Supp) 10 mg RECTAL DAILY PRN PRN Reason: SEVERE CONSITIPATION Diltiazem HCl (Cardizem Cd 24hr) 180 mg PO HS [facility] Sodium Chloride (Ns Inj) 1,000 mls @ 125 mls/hr IV.CONT .Q8H [facility] Last Infusion: 03/15/18 21:30 Dose: 125 mls/hr Sodium Chloride (Ns Inj) 1,000 mls @ 50 mls/hr IV.CONT .Q20H [facility] Last Admin: 03/15/18 22:43 Dose: 50 mls/hr Ertapenem 1,000 mg/ Sodium (Chloride) 100 mls @ 200 mls/hr IV.SIG Q24H [facility] Diltiazem HCl 125 mg/ Sodium (Chloride) 125 mls @ 5 mls/hr IV.CONT TITRATE PRN ; Protocol PRN Reason: Per Protocol Last Admin: 03/15/18 22:41 Dose: 5 mg/hr, 5 mls/hr Heparin Sodium/Dextrose (Heparin/D5w 25,000 U/250 Ml) 25,000 unit in 250 mls @ 0 mls/hr IV.CONT TITRATE PRN; Protocol PRN Reason: Per Protocol Lactulose (Lactulose Liq) 30 ml PO DAILY PRN PRN Reason: SEVERE CONSITIPATION Sennosides (Senokot) 17.2 mg PO Q12H PRN PRN Reason: Moderate Constipation Allergies Allergy/AdvReac Type Severity Reaction Status Date / Time sulfamethoxazole Allergy Tachycardia Verified 03/15/18 18:58 [From Bactrim] trimethoprim [From Bactrim] Allergy Tachycardia Verified 03/15/18 18:58 *MDRO Multi-Drug Resistant AdvReac Unknown n/a Uncoded 03/15/18 13:02 Organism Home Medications Medication Instructions Recorded Confirmed Type diltiazem HCl 120 mg PO HS 01/15/18 03/15/18 History ertapenem [Invanz] 1 g IV DAILY 03/14/18 03/15/18 History Exam Vital signs: Vital Signs 03/15/18 18:07 03/15/18 18:48 03/15/18 19:51 Temperature 97.6 F Pulse Rate 124 H 120 H 103 H Respiratory Rate 20 32 H 22 Blood Pressure 199/88 H 160/77 H 121/68 Pulse Oximetry 76 L 88 L 92 L 03/15/18 20:14 03/15/18 20:20 03/15/18 20:40 Temperature Pulse Rate 158 H 156 H 109 H Respiratory Rate 34 H 30 H 30 H Blood Pressure 107/71 88/57 L 129/63 Pulse Oximetry 93 L 93 L 94 L 03/15/18 20:50 03/15/18 21:00 03/15/18 21:10 Temperature Pulse Rate 91 H 97 H 103 H Respiratory Rate 29 H 26 H 26 H Blood Pressure 109/64 116/61 127/62 Pulse Oximetry 90 L 92 L 91 L 03/15/18 22:17 03/15/18 22:21 03/15/18 23:31 Temperature Pulse Rate 163 H 93 H 96 H Respiratory Rate 33 H 27 H 20 Blood Pressure 127/62 121/62 Pulse Oximetry 95 92 L Intake & Output 03/15/18 03/15/18 03/16/18 06:59 18:59 06:59 Intake Total 125 / 125 Balance 125 / 125 Weight 43.29 kg Intake: IV 125 / 125 NS Inj 1,000 ML @ 125 mls/hr IV 125 / 125 .CONT .Q8H [facility] Rx#:[id number] Narrative: GENERAL: Patient sitting up in bed. Appears comfortable. Alert and oriented x3. SKIN: Warm and dry. HEAD: Atraumatic. Normocephalic. EYES: Pupils equal and round. No scleral icterus. No injection or drainage. ENT: No nasal bleeding or discharge. Mucous membranes pink and moist. NECK: Trachea midline. No JVD. CARDIOVASCULAR: Regular rate and rhythm. RESPIRATORY: No accessory muscle use. Clear to auscultation. Breath sounds equal bilaterally. GASTROINTESTINAL: Abdomen soft, non-tender, nondistended. Hepatic and splenic margins not palpable. MUSCULOSKELETAL: Extremities without clubbing, cyanosis, or edema. No obvious deformities. NEUROLOGICAL: Awake and alert. No obvious cranial nerve deficits. Motor grossly within normal limits. Five out of 5 muscle strength in the arms and legs. Normal speech. PSYCHIATRIC: Appropriate mood and affect; insight and judgment normal. Results - Labs CBC & Chem 7: 03/15/18 18:15 03/15/18 18:15 Labs: Short CBC 03/15/18 Range/Units 18:15 WBC 10.1 (4.0-11.0) th/mm3 Hgb 16.0 H (11.6-15.3) gm/dL Hct 48.7 H (35.0-46.0) % Plt Count 150 (150-450) th/mm3 BMP 03/15/18 18:15 Sodium 137 Potassium 4.1 Chloride 101 Carbon Dioxide 25.9 BUN 20 H Creatinine 1.19 H Calcium 8.8 Cardiac Enzymes 03/15/18 Range/Units 18:15 Total Creatine Kinase 63 (26-192) U/L Troponin I 0.03 (0.02-0.05) ng/mL Liver Function 03/15/18 Range/Units 18:15 Total Bilirubin 0.5 (0.2-1.0) mg/dL AST 29 (15-37) U/L ALT 32 (10-53) U/L Alkaline Phosphatase 90 (45-117) U/L Albumin 3.5 (3.4-5.0) g/dL - Imaging Impressions Chest X-Ray 03/15/18 18:13 CONCLUSION: No acute findings. Chronic interstitial changes in both lungs. Hip X-Ray 03/15/18 18:13 CONCLUSION: No fracture seen. Pelvis CT 03/15/18 19:11 CONCLUSION: 1. Mildly comminuted nondisplaced fractures of the left inferior pubic ramus. Caprini VTE Risk Assessment Caprini VTE Risk Assessment: Moderate/High Risk (score >= 2) Caprini Risk Assessment Model: Point Value = 1 Point Value = 2 Point Value = 3 Point Value = 5 Age 41-60 Minor surgery BMI > 25 kg/m2 Swollen legs Varicose veins or History of unexplained or recurrent spontaneous Oral contraceptives or hormone replacement Sepsis (< 1 month) Serious lung disease, including pneumonia (< 1 month) Abnormal pulmonary function Acute myocardial infarction Congestive heart failure (< 1 month) History of inflammatory bowel disease Medical patient at bed rest Age 61-74 Arthroscopic surgery Major open surgery (> 45 min) Laparoscopic surgery (> 45 min) Malignancy Confined to bed (> 72 hours) Immobilizing plaster cast Central venous access Age >= 75 History of VTE Family history of VTE Factor V Leiden Prothrombin [id number] Lupus anticoagulant Anticardiolipin antibodies Elevated serum homocysteine Heparin-induced thrombocytopenia Other congenital or acquired thrombophilia Stroke (< 1 month) Elective arthroplasty Hip, pelvis, or leg fracture Acute spinal cord injury (< 1 month) Prophylaxis Regimen: Total Risk Factor Score Risk Level Prophylaxis Regimen 0-1 Low Early ambulation 2 Moderate Order ONE of the following: *Sequential Compression Device (SCD) *Heparin 5000 units SQ BID 3-4 Higher Order ONE of the following medications: *Heparin 5000 units SQ TID *Enoxaparin/Lovenox 40 mg SQ daily (WT < 150 kg, CrCl > 30 mL/min) *Enoxaparin/Lovenox 30 mg SQ daily (WT < 150 kg, CrCl > 10-29 mL/min) *Enoxaparin/Lovenox 30 mg SQ BID (WT < 150 kg, CrCl > 30 mL/min) AND/OR *Sequential Compression Device (SCD) 5 or more Highest Order ONE of the following medications: *Heparin 5000 units SQ TID (Preferred with Epidurals) *Enoxaparin/Lovenox 40 mg SQ daily (WT < 150 kg, CrCl > 30 mL/min) *Enoxaparin/Lovenox 30 mg SQ daily (WT < 150 kg, CrCl > 10-29 mL/min) *Enoxaparin/Lovenox 30 mg SQ BID (WT < 150 kg, CrCl > 30 mL/min) AND *Sequential Compression Device (SCD) Assessment and Plan - Plan //SVT = Improved after diltiazem. Will start on by mouth diltiazem, as well as diltiazem drip. Cardiology has been consulted. Appreciate assistance. This could be secondary to pulmonary embolism. See below. //Suspected pulmonary embolism. = D-dimer elevated in the 30s = We will start on heparin drip, stat CT pulmonary angiogram. Appreciate nursing assistance. //Chronic bronchitis with resistant organism. Will start on Invanz. Will consult pulmonology. Discussed Condition With: Patient, nurse, ED physician
[2018-03-16] MEDS ORDERED: Atropine Inj 1 MG/10 ML Syringe ONE (00:36)
[2018-03-16 00:43] LABS: Activated Partial Thrombo Time 24.4 sec (24.3-30.1); INR 1.1 Ratio; Prothrombin Time 11.2 sec (9.8-11.6)
--- NOTE | 2018-03-16 01:13 | CT ---
EXAM DATE: 03/16/2018 12:17 AM EDT AGE/SEX: 77 years / Female INDICATIONS: Shortness of breath. CLINICAL DATA: This is the patient's initial encounter. Patient reports that signs and symptoms have been present for 1 day and indicates a pain score of 3/10. MEDICAL/SURGICAL HISTORY: None. None. RADIATION DOSE: 4.34 CTDI (mGy) COMPARISON: [facility], CT CHEST W/O CONTRAST, 11/12/2015. . TECHNIQUE: Volumetric scanning was performed using a multi-row detector CT scanner during bolus infu tony of 63 ml Omnipaque 350 (iohexol) nonionic water-soluble contrast as a single exam dose. The nayeli a was post processed with a variety of visualization algorithms including full volume maximum intensi ty projection and sliding thin slab reformation. Using automated exposure control and adjustment of the mA and/or kV according to patient size, radiation dose was kept as low as reasonably achievable t o obtain optimal diagnostic quality images. DICOM format image data is available electronically for review and comparison. FINDINGS: There is no pulmonary embolus. Heart size within normal limits. There is coronary artery calcificatio n, most conspicuous of the left anterior descending. There is mild emphysema. Moderate bronchiectasis and mild patchy parenchymal consolidation seen of beverly th bases. Tiny bilateral pleural effusions are present. No pneumothorax. 7 mm nodule seen in the right lower lobe, series 302 image 58. 7 mm irregular nodule in the right upp er lobe series 302 image 41. A few scattered sub-4 mm nodules are seen of both lungs. CONCLUSION: 1. No pulmonary embolus. 2. Bronchiectasis and patchy, presumably infectious or inflammatory infiltrate of both bases. 3. Tiny bilateral pleural effusions. 4. 7 mm nodules in the right lower and upper lobes and a few scattered sub-4 mm bilateral pulmonary nodules. Six-month follow-up noncontrast chest CT is Coronary artery calcification. Electronically signed by: Julio Mendoza MD 03/16/2018 1:12 AM EDT
[2018-03-16] MEDS: Sod Chloride 0.9% Inj 1,000 ML IV.CONT SCH ×3 (05:40→19:15)
[2018-03-16 07:00] LABS: Baso % (Auto) 0.2 % (0.0-2.0); Hematocrit 43.7 % (35.0-46.0); Hemoglobin 14.5 gm/dL (11.6-15.3); Lymph # (Auto) 0.8 th/mm3 (1.0-4.8); Lymph % (Auto) 4.7 % (9.0-44.0); Mean Corpuscular HGB Conc 33.1 % (32.0-36.0); Mean Corpuscular Hemoglobin 30.4 pg (27.0-34.0); Mean Corpuscular Volume 91.9 fL (80.0-100.0); Mono # (Auto) 0.4 th/mm3 (0.0-0.9); Mono % (Auto) 2.4 % (0.0-8.0); Neut % (Auto) 92.7 % (16.0-70.0); Platelet Count 119 th/mm3 (150-450); Red Blood Count 4.76 mil/mm3 (4.00-5.30); Red Cell Distribution Width 13.9 % (11.6-17.2); White Blood Count 17.3 th/mm3 (4.0-11.0)
[2018-03-16] MEDS: dilTIAZem Inj 125 MG in Sodium Chlor 0.9% Inj 100 ML IV.CONT PRN (07:21)
[2018-03-16 08:41] LABS: Alanine Aminotransferase 64 U/L (10-53); Albumin 2.9 g/dL (3.4-5.0); Alkaline Phosphatase 79 U/L (45-117); Anion Gap 9 meq/L (5-15); Aspartate Aminotransferase 61 U/L (15-37); Blood Urea Nitrogen 17 mg/dL (7-18); Calcium 7.9 mg/dL (8.5-10.1); Carbon Dioxide 24.3 meq/L (21.0-32.0); Chloride 108 meq/L (98-107); Glomerular Filtration Rate 54 mL/min (>89); Glucose,Random 210 mg/dL (74-106); Potassium 4.2 meq/L (3.5-5.1); Sodium 141 meq/L (136-145); Total Protein 6.5 g/dL (6.4-8.2)
[2018-03-16] MEDS ORDERED: ERTAPENEM 1 GM IV.SIG SCH (09:00)
[2018-03-16] MEDS ORDERED: dilTIAZem CD 120 MG Capsule PO SCH (09:00)
[2018-03-16] MEDS: Heparin - SQ 10,000 UNITS/ML Vial SQ SCH ×2 (09:14→20:31)
--- NOTE | 2018-03-16 09:31 | P.PN ---
Subjective Interval history: Nursing reports that the patient is refusing ertapenem because she strongly believes that this causes SVT. She is currently on a diltiazem drip running at 10. Patient does affirm she had a mechanical fall where she spun around and then landed on the floor. She says only later on in the emergency department that she started experiencing the SVT. She does affirm that she has had history of SVT with in the past prior to any antibiotic administration. She started taking her Invanz 3 days ago once a day and she is very convinced that. I spent over 15 minutes at the bedside educating the patient that there was no strong credible knowledge that ertapenem causes SVT. I informed her that I spoke to my pharmacist, infectious disease, and also from no strong concern from cardiology that ertapenem has any relation to SVT. Physical Exam Vital signs: Vital Signs 03/15/18 18:07 03/15/18 18:48 03/15/18 19:51 Temperature 97.6 F Pulse Rate 124 H 120 H 103 H Respiratory Rate 20 32 H 22 Blood Pressure 199/88 H 160/77 H 121/68 Pulse Oximetry 76 L 88 L 92 L 03/15/18 20:14 03/15/18 20:20 03/15/18 20:40 Temperature Pulse Rate 158 H 156 H 109 H Respiratory Rate 34 H 30 H 30 H Blood Pressure 107/71 88/57 L 129/63 Pulse Oximetry 93 L 93 L 94 L 03/15/18 20:50 03/15/18 21:00 03/15/18 21:10 Temperature Pulse Rate 91 H 97 H 103 H Respiratory Rate 29 H 26 H 26 H Blood Pressure 109/64 116/61 127/62 Pulse Oximetry 90 L 92 L 91 L 03/15/18 22:17 03/15/18 22:21 03/15/18 23:31 Temperature Pulse Rate 163 H 93 H 96 H Respiratory Rate 33 H 27 H 20 Blood Pressure 127/62 121/62 Pulse Oximetry 95 92 L 03/16/18 00:00 03/16/18 01:00 03/16/18 02:00 Temperature Pulse Rate 101 H 146 H 92 H Respiratory Rate 16 Blood Pressure 143/79 H Pulse Oximetry 92 L 03/16/18 03:00 03/16/18 04:00 03/16/18 05:00 Temperature 97.5 F L Pulse Rate 84 74 72 Respiratory Rate 16 Blood Pressure 142/74 H Pulse Oximetry 94 L 03/16/18 06:00 Temperature Pulse Rate 76 Respiratory Rate Blood Pressure Pulse Oximetry Intake & Output 03/15/18 03/16/18 03/16/18 18:59 06:59 18:59 Intake Total 485 / 485 1100 / 1100 Output Total 900 / 900 Balance -415 / -415 1100 / 1100 Weight 43.29 kg 43.5 kg Intake: IV 125 / 125 1100 / 1100 NS Inj 1,000 ML @ 50 mls/hr IV. 125 / 125 1000 / 1000 CONT .Q20H [facility] Rx#:[id number] Cardizem Inj 125 MG In NS Inj 100 / 100 100 ML @ 5 MG/HR 5 mls/hr IV. CONT TITRATE PRN Rx#:[id number] Oral 360 / 360 Output: Urine 900 / 900 Narrative: Heart sounds regular rate rhythm while on diltiazem drip Clear lungs bilaterally, unlabored breathing Has intact hip flexion bilaterally with intact hip abduction and abduction Results - Labs CBC & Chem 7: 03/16/18 06:00 03/16/18 06:00 Laboratory Results - last 24 hr 03/15/18 03/15/18 03/15/18 18:15 18:15 22:06 WBC 10.1 RBC 5.31 H Hgb 16.0 H Hct 48.7 H MCV 91.7 MCH 30.2 MCHC 32.9 RDW 14.0 Plt Count 150 MPV 9.5 Neut % (Auto) 67.5 Lymph % (Auto) 21.5 [place] % (Auto) 10.1 H Eos % (Auto) 0.4 Baso % (Auto) 0.5 Neut # (Auto) 6.8 Lymph # (Auto) 2.2 [place] # (Auto) 1.0 H Eos # (Auto) 0.0 Baso # (Auto) 0.0 WBC Differential . Differential Comment Auto diff final PT INR APTT D-Dimer Quant (PE/DVT) Puncture Site Right radial Patient Temperature 98.6 O2 Saturation 94 ABG pH 7.37 L ABG pCO2 34 L ABG pO2 84 ABG HCO3 19 L ABG O2 Content 20.5 H ABG Base Excess -5.2 L ABG Methemoglobin 0.5 [place] Test + Hemoglobin 15.5 Carboxyhemoglobin 0.8 O2 Delivery Device Nasal cannula Liter Flow 6.00 Critical Value No Sodium 137 Potassium 4.1 Chloride 101 Carbon Dioxide 25.9 Anion Gap 10 BUN 20 H Creatinine 1.19 H Estimated GFR 44 L Random Glucose 157 H Calcium 8.8 Magnesium 2.2 Total Bilirubin 0.5 AST 29 ALT 32 Alkaline Phosphatase 90 Total Creatine Kinase 63 Troponin I 0.03 Total Protein 7.8 Albumin 3.5 03/15/18 03/15/18 03/16/18 22:40 22:40 00:30 WBC RBC Hgb Hct MCV MCH MCHC RDW Plt Count MPV Neut % (Auto) Lymph % (Auto) [place] % (Auto) Eos % (Auto) Baso % (Auto) Neut # (Auto) Lymph # (Auto) [place] # (Auto) Eos # (Auto) Baso # (Auto) WBC Differential Differential Comment PT 11.2 INR 1.1 APTT 24.4 32.0 H D D-Dimer Quant (PE/DVT) Greater than 35.20 H Puncture Site Patient Temperature O2 Saturation ABG pH ABG pCO2 ABG pO2 ABG HCO3 ABG O2 Content ABG Base Excess ABG Methemoglobin [place] Test Hemoglobin Carboxyhemoglobin O2 Delivery Device Liter Flow Critical Value Sodium Potassium Chloride Carbon Dioxide Anion Gap BUN Creatinine Estimated GFR Random Glucose Calcium Magnesium Total Bilirubin AST ALT Alkaline Phosphatase Total Creatine Kinase Troponin I Total Protein Albumin 03/16/18 03/16/18 06:00 06:00 WBC 17.3 H D RBC 4.76 Hgb 14.5 Hct 43.7 MCV 91.9 MCH 30.4 MCHC 33.1 RDW 13.9 Plt Count 119 L MPV 10.0 Neut % (Auto) 92.7 H Lymph % (Auto) 4.7 L [place] % (Auto) 2.4 Eos % (Auto) 0.0 Baso % (Auto) 0.2 Neut # (Auto) 16.0 H Lymph # (Auto) 0.8 L [place] # (Auto) 0.4 Eos # (Auto) 0.0 Baso # (Auto) 0.0 WBC Differential . Differential Comment Auto diff final PT INR APTT D-Dimer Quant (PE/DVT) Puncture Site Patient Temperature O2 Saturation ABG pH ABG pCO2 ABG pO2 ABG HCO3 ABG O2 Content ABG Base Excess ABG Methemoglobin [place] Test Hemoglobin Carboxyhemoglobin O2 Delivery Device Liter Flow Critical Value Sodium 141 Potassium 4.2 Chloride 108 H Carbon Dioxide 24.3 Anion Gap 9 BUN 17 Creatinine 0.99 Estimated GFR 54 L Random Glucose 210 H Calcium 7.9 L D Magnesium Total Bilirubin 0.6 AST 61 H ALT 64 H Alkaline Phosphatase 79 Total Creatine Kinase Troponin I Total Protein 6.5 D Albumin 2.9 L D - Imaging Impressions Chest X-Ray 03/15/18 18:13 CONCLUSION: No acute findings. Chronic interstitial changes in both lungs. Hip X-Ray 03/15/18 18:13 CONCLUSION: No fracture seen. Pelvis CT 03/15/18 19:11 CONCLUSION: 1. Mildly comminuted nondisplaced fractures of the left inferior pubic ramus. Chest CTA 03/16/18 00:00 CONCLUSION: 1. No pulmonary embolus. 2. Bronchiectasis and patchy, presumably infectious or inflammatory infiltrate of both bases. 3. Tiny bilateral pleural effusions. 4. 7 mm nodules in the right lower and upper lobes and a few scattered sub-4 mm bilateral pulmonary nodules. Six-month follow-up noncontrast chest CT is Coronary artery calcification. Assessment and Plan - Plan /SVT = Required 3 doses of adenosine in the emergency department. Will started on a diltiazem drip. Appreciate cardiology input, will start higher dosing of oral extended release Cardizem and wean off drip as tolerated. Patient has reluctantly agreed to Invanz. I informed her that we will monitor her while inpatient trying to control her tachycardia throughout the day. Elevated d-dimer There is no pulmonary embolism on the CT. We will stop the heparin drip. hip pain - nondisplaced left pubic rami fx; ortho recommending conservative management //Chronic bronchitis with resistant organism. Invanz.
--- NOTE | 2018-03-16 11:55 | MB ---
cc: Mitul Will MD DATE: 03/16/2018 HISTORY OF PRESENT ILLNESS: Inga is a very pleasant 77-year-old lady who is being treated with Invanz after a bronchoscopy by Dr. Fernandez approximately a week prior to admission. She has also had a 10-pound weight loss. She presents to the ER with chief complaint of palpitations, dyspnea. She had a fall, but denies any symptoms of dizziness, lightheadedness or loss of consciousness. Currently, she is resting in bed, no acute distress. Denies chest pain, tightness, squeezing pressure, fever, chills, cough, GI or bleeding, PND or orthopnea. PAST MEDICAL HISTORY: As per history of present illness. ALLERGIES: SULFAMETHOXAZOLE, TRIMETHOPRIM AND ERO. MEDICATIONS IN THE HOSPITAL: 1. Cardizem drip. 2. Cardizem-CD 180 mg daily. 3. Ertapenem. 4. Heparin 5000 subcutaneous every 12 hours. PHYSICAL EXAMINATION: VITAL SIGNS: Blood pressure 100/56, pulse 73, temperature 97.6, respiratory rate 18, saturations 94% on 5 liters nasal cannula. GENERAL: She is alert and oriented x3, in no acute distress. NECK: Supple. No JVD or bruit. CARDIOVASCULAR: S1, S2. No murmurs, rubs or gallops. LUNGS: Coarse bilaterally. ABDOMEN: Soft, nontender, nondistended, with positive bowel sounds. EXTREMITIES: Lower extremity edema. IMAGING STUDIES: Chest x-ray shows chronic interstitial changes in both lungs. Hip x-ray, no fracture seen. LABORATORY DATA: Initial EKG shows sinus tachycardia at 116 beats per minute. Subsequent EKG in the computer; I am not sure if this is actually the exact temporal sequence, but it is the second EKG listed in the computer. It shows an SVT at a rate of 194 beats per minute, narrow complex, nonspecific ST-T wave changes. CT of the chest, no pulmonary embolus. Bronchiectasis and patchy presumably infectious or inflammatory infiltrate at both bases. Tiny bilateral pleural effusions, 7 mm nodules in the right lower and upper lobes, and a few scattered 4 mm bilaterally pulmonary nodules, 6-month followup. Noncontrast chest CT shows coronary artery calcification. LABORATORY DATA: White count 17.3, hemoglobin 16.0, hematocrit 48.7, platelet count 119. INR 1.1. Blood gas: pH of 7.37, pO2 of 84, pCO2 of 34. Sodium 141, potassium 4.2, chloride 108, bicarbonate 24.3, BUN 17, creatinine 0.99, AST 61, ALT 64, albumin 2.9. DIAGNOSES: 1. Supraventricular tachycardia. 2. Pneumonia. 3. Bronchiectasis. 4. Elevated liver enzymes. 5. Hyperglycemia. 6. Polycythemia. 7. Elevated white count. 8. Thrombocytopenia. 9. Hypoxia. DISCUSSION: It is unclear what precipitated her SVT. Could consider a combination of pneumonia, weight loss, intravascular volume depletion. Her electrolytes appear to be normal, including her magnesium. I think it is reasonable to continue on oral Cardizem and convert her IV dose, added typically with her current oral dose. Could consider letting her go home today versus further observation on telemetry overnight. She is oxygen dependent. Oxygen requirement will need to be determined prior to discharge. Certainly after she is discharged, she will need to follow up with me as soon as possible in the office. MD JETT Machuca/maribel , 10:48 AM , 10:57 AM
--- NOTE | 2018-03-16 14:15 | P.CONOP ---
[facility] Orthopedics Consult Note - [facility] Consult date: 03/16/18 Consult reason: fracture (left inferior pubic rami) Chief complaint: Supra Ventricular Tachycardia Narrative: 77-year-old white female who presented to the emergency department for suffering a mechanical fall at home. She states that she tripped and fell and landed on her left hip. She states she has left hip pain and groin pain. She reports that the pain is improving. She states that she has been able to ambulate with a walker. She states that it is more of a dull ache and not necessarily a severe pain. Overall, she thinks she is doing well and states she is able to ambulate to the bathroom and back on her own. She reports no pain at rest or while moving the hip. She denies any numbness, tingling, or loss of sensation. Denies any weakness. She was admitted due to cardiac issues and is being monitored for those. <Dao Vidal - Last Filed: 03/16/18 14:09> Review of Systems Patient denies any fevers, weight loss, headache, visual changes, hearing loss, chest pain, palpitations, shortness of breath, nausea, vomiting, urinary changes , neck or back pain, skin rashes, weakness or numbness of extremities, or depression. All other systems reviewed negative except as stated in [facility] <Dao Vidal - Last Filed: 03/16/18 14:09> [facility] - History History Provided By: Patient - Medical History Medical History: Medical History (Last Reviewed 03/16/18 @ 14:11 by MARY ELLEN Bliss) SVT (supraventricular tachycardia) (Acute) Lung infection - Surgical History Surgical History: Surgical History (Last Reviewed 03/16/18 @ 14:11 by MARY ELLEN Bliss) History of facelift (Acute) History of bronchoscopy (Acute) - Family History Family History: Family History (Last Reviewed 03/16/18 @ 14:11 by MARY ELLEN Bliss) Mother Heart disease - Social History I have reviewed the patient's Social History: Yes - Tobacco History Second Hand Smoke Exposure: No Tobacco Use In Past 30 Days: No Smoking Status: Former smoker - Alcohol History How Often Do You Have a Drink Containing Alcohol: Never - Substance Use History Substance History: No History of Abuse - Travel History Recent Travel in the [facility] Within the Last 8 Weeks: No Recent Travel Out of the Country Within the Last 8 Weeks: No - Immunization History Tetanus Immunization: Unsure Hx Influenza Vaccine This Season: No <Dao Vidal - Last Filed: 03/16/18 14:09> - Medical History Medical History: Medical History (Last Reviewed 03/16/18 @ 14:11 by MARY ELLEN Bliss) SVT (supraventricular tachycardia) (Acute) Lung infection - Surgical History Surgical History: Surgical History (Last Reviewed 03/16/18 @ 14:11 by MARY ELLEN Bliss) History of facelift (Acute) History of bronchoscopy (Acute) - Family History Family History: Family History (Last Reviewed 03/16/18 @ 14:11 by MARY ELLEN Bliss) Mother Heart disease <Zhao Dyer - Last Filed: 03/20/18 17:13> Medications and Allergies Active Medications: Active Medications Al Hydroxide/Mg Hydroxide (Milk Of Magnmacrina Liq) 30 ml PO Q12H PRN PRN Reason: Mild Constipation Albuterol (Duoneb Neb (Joanne)) 1 ampul NEB Q8HR ALT NEB JOANNE Last Admin: 03/16/18 14:04 Dose: Not Given Bisacodyl (Dulcolax Supp) 10 mg RECTAL DAILY PRN PRN Reason: SEVERE CONSITIPATION Diltiazem HCl (Cardizem Cd 24hr) 180 mg PO HS JOANNE Heparin Sodium (Porcine) (Heparin Inj) 5,000 units SQ Q12HR JOANNE Last Admin: 03/16/18 09:14 Dose: 5,000 units Sodium Chloride (Ns Inj) 1,000 mls @ 125 mls/hr IV.CONT .Q8H JOANNE Last Admin: 03/16/18 13:03 Dose: 125 mls/hr Sodium Chloride (Ns Inj) 1,000 mls @ 50 mls/hr IV.CONT .Q20H JOANNE Last Infusion: 03/16/18 07:18 Dose: Infused Diltiazem HCl 125 mg/ Sodium (Chloride) 125 mls @ 5 mls/hr IV.CONT TITRATE PRN ; Protocol PRN Reason: Per Protocol Last Titration: 03/16/18 11:17 Dose: 5 mg/hr, 5 mls/hr Imipenem/Cilastatin Sodium 500 (mg/ Sodium Chloride) 100 mls @ 200 mls/hr IV.SIG Q6H [facility] Last Admin: 03/16/18 13:25 Dose: 200 mls/hr Lactulose (Lactulose Liq) 30 ml PO DAILY PRN PRN Reason: SEVERE CONSITIPATION Sennosides (Senokot) 17.2 mg PO Q12H PRN PRN Reason: Moderate Constipation <Dao Vidal - Last Filed: 03/16/18 14:09> Active Medications: Active Medications Al Hydroxide/Mg Hydroxide (Milk Of Magnesia Liq) 30 ml PO Q12H PRN PRN Reason: Mild Constipation Albuterol (Ventolin Hfa Inh) 2 puff INH Q6H PRN PRN Reason: SHORTNESS OF BREATH Bisacodyl (Dulcolax Supp) 10 mg RECTAL DAILY PRN PRN Reason: SEVERE CONSITIPATION Diltiazem HCl (Cardizem Cd 24hr) 180 mg PO HS [facility] Last Admin: 03/19/18 20:13 Dose: 180 mg Guaifenesin (Mucinex Er) 600 mg PO BID [facility] Last Admin: 03/20/18 08:21 Dose: 600 mg Diltiazem HCl 125 mg/ Sodium (Chloride) 125 mls @ 5 mls/hr IV.CONT TITRATE PRN ; Protocol PRN Reason: Per Protocol Last Titration: 03/16/18 15:30 Dose: 0 mg/hr, 0 mls/hr Ertapenem 1,000 mg/ Sodium (Chloride) 100 mls @ 200 mls/hr IV.SIG Q24H [facility] Last Infusion: 03/20/18 09:00 Dose: Infused Lactulose (Lactulose Liq) 30 ml PO DAILY PRN PRN Reason: SEVERE CONSITIPATION Sennosides (Senokot) 17.2 mg PO Q12H PRN PRN Reason: Moderate Constipation <Zhao Dyer - Last Filed: 03/20/18 17:13> Allergies Allergy/AdvReac Type Severity Reaction Status Date / Time sulfamethoxazole Allergy Tachycardia Verified 03/15/18 18:58 [From Bactrim] trimethoprim [From Bactrim] Allergy Tachycardia Verified 03/15/18 18:58 *MDRO Multi-Drug Resistant AdvReac Unknown n/a Uncoded 03/15/18 13:02 Organism Exam Vital signs: Vital Signs 03/15/18 18:07 03/15/18 18:48 03/15/18 19:51 Temperature 97.6 F Pulse Rate 124 H 120 H 103 H Respiratory Rate 20 32 H 22 Blood Pressure 199/88 H 160/77 H 121/68 Pulse Oximetry 76 L 88 L 92 L 03/15/18 20:14 03/15/18 20:20 03/15/18 20:40 Temperature Pulse Rate 158 H 156 H 109 H Respiratory Rate 34 H 30 H 30 H Blood Pressure 107/71 88/57 L 129/63 Pulse Oximetry 93 L 93 L 94 L 03/15/18 20:50 03/15/18 21:00 03/15/18 21:10 Temperature Pulse Rate 91 H 97 H 103 H Respiratory Rate 29 H 26 H 26 H Blood Pressure 109/64 116/61 127/62 Pulse Oximetry 90 L 92 L 91 L 03/15/18 22:17 03/15/18 22:21 03/15/18 23:31 Temperature Pulse Rate 163 H 93 H 96 H Respiratory Rate 33 H 27 H 20 Blood Pressure 127/62 121/62 Pulse Oximetry 95 92 L 03/16/18 00:00 03/16/18 01:00 03/16/18 02:00 Temperature Pulse Rate 101 H 146 H 92 H Respiratory Rate 16 Blood Pressure 143/79 H Pulse Oximetry 92 L 03/16/18 03:00 03/16/18 04:00 03/16/18 05:00 Temperature 97.5 F L Pulse Rate 84 74 72 Respiratory Rate 16 Blood Pressure 142/74 H Pulse Oximetry 94 L 03/16/18 06:00 03/16/18 07:00 03/16/18 08:00 Temperature 97.6 F Pulse Rate 76 72 72 Respiratory Rate 18 Blood Pressure 100/56 L Pulse Oximetry 94 L 94 L 03/16/18 09:00 03/16/18 10:00 03/16/18 11:00 Temperature 97.8 F Pulse Rate 80 72 76 Respiratory Rate 18 Blood Pressure 126/60 Pulse Oximetry 93 L Intake & Output 03/15/18 03/16/18 03/16/18 18:59 06:59 18:59 Intake Total 485 / 485 2074 Output Total 900 / 900 Balance -415 / -415 2074 Weight 43.29 kg 43.5 kg Intake: IV 125 / 125 2074 NS Inj 1,000 ML @ 125 mls/hr IV 125 / 125 1875 / 1875 .CONT .Q8H JOANNE Rx#:[id number] Cardizem Inj 125 MG In NS Inj 100 / 100 100 ML @ 5 MG/HR 5 mls/hr IV. CONT TITRATE PRN Rx#:[id number] INVanz Inj 1,000 MG In NS Inj 100 / 100 100 ML @ 200 mls/hr IV.SIG Q24H JOANNE Rx#:[id number] Oral 360 / 360 Output: Urine 900 / 900 Other: Date of Last Bowel Movement 03/14/18 Narrative: General: Well-developed and well-nourished. Resting comfortably in no acute distress Head: Normocephalic and atraumatic Ears: Hearing is intact bilaterally Eyes: Extraocular motion is intact. Pupils are equal round and reactive to light. Neck: No evidence of lymphadenopathy Cranial nerve: II-XII grossly intact Lungs: No use of accessory muscles or breathing and no audible wheezes at bedside Heart: No grade 4 murmur present at bedside Abdomen: Soft and nontender. Musculoskeletal: LLE: Full passive motion of the hip, knee, ankle and toes with minimal discomfort. Full sensation distally. Strong dorsiflexion. RLE: Full motion of the hip, knee, ankle and toes with no pain. Full sensation distally with full strength <Dao Vidal - Last Filed: 03/16/18 14:09> Vital signs: Vital Signs 03/19/18 18:00 03/19/18 19:00 03/19/18 20:00 Temperature 98.2 F Pulse Rate 96 H 100 H 96 H Respiratory Rate 20 Blood Pressure 133/73 Pulse Oximetry 95 03/19/18 21:00 03/19/18 22:00 03/19/18 23:00 Temperature 98.0 F Pulse Rate 81 75 76 Respiratory Rate 20 Blood Pressure 135/70 Pulse Oximetry 97 03/19/18 23:57 03/20/18 00:00 03/20/18 01:00 Temperature Pulse Rate 102 H 69 Respiratory Rate Blood Pressure Pulse Oximetry 97 03/20/18 02:00 03/20/18 03:00 03/20/18 04:00 Temperature 97.8 F Pulse Rate 66 73 67 Respiratory Rate 18 Blood Pressure 113/58 L Pulse Oximetry 97 03/20/18 05:00 03/20/18 05:53 03/20/18 07:00 Temperature Pulse Rate 91 H 66 67 Respiratory Rate Blood Pressure Pulse Oximetry 03/20/18 08:00 03/20/18 08:59 03/20/18 09:00 Temperature 97.6 F Pulse Rate 67 84 Respiratory Rate 18 Blood Pressure 113/55 L Pulse Oximetry 97 97 03/20/18 10:00 03/20/18 11:00 03/20/18 12:00 Temperature 97.4 F L Pulse Rate 77 72 80 Respiratory Rate 18 Blood Pressure 128/67 Pulse Oximetry 99 03/20/18 13:00 03/20/18 14:00 03/20/18 15:00 Temperature Pulse Rate 84 94 H 100 H Respiratory Rate Blood Pressure Pulse Oximetry 03/20/18 16:00 Temperature 97.6 F Pulse Rate 100 H Respiratory Rate 18 Blood Pressure 134/75 Pulse Oximetry 94 L Intake & Output 03/19/18 03/20/18 03/20/18 18:59 06:59 18:59 Intake Total 740 / 740 480 / 480 100 / 100 Output Total 900 / 900 700 / 700 Balance -160 / -160 -220 / -220 100 / 100 Weight 46 kg 43.7 kg Intake: IV 100 / 100 100 / 100 INVanz Inj 1,000 MG In NS Inj 100 / 100 100 / 100 100 ML @ 200 mls/hr IV.SIG Q24H [facility] Rx#:[id number] Oral 640 / 640 480 / 480 Output: Urine 900 / 900 700 / 700 Other: Date of Last Bowel Movement 03/19/18 03/20/18 # Bowel Movements 1 <Zhao Dyer - Last Filed: 03/20/18 17:13> Results - Labs Result Diagrams: 03/16/18 06:00 03/16/18 06:00 Labs: Laboratory Results - last 24 hr 03/15/18 03/15/18 03/15/18 18:15 18:15 22:06 WBC 10.1 RBC 5.31 H Hgb 16.0 H Hct 48.7 H MCV 91.7 MCH 30.2 MCHC 32.9 RDW 14.0 Plt Count 150 MPV 9.5 Neut % (Auto) 67.5 Lymph % (Auto) 21.5 Lipscomb % (Auto) 10.1 H Eos % (Auto) 0.4 Baso % (Auto) 0.5 Neut # (Auto) 6.8 Lymph # (Auto) 2.2 Lipscomb # (Auto) 1.0 H Eos # (Auto) 0.0 Baso # (Auto) 0.0 WBC Differential . Differential Comment Auto diff final PT INR APTT D-Dimer Quant (PE/DVT) Puncture Site Right radial Patient Temperature 98.6 O2 Saturation 94 ABG pH 7.37 L ABG pCO2 34 L ABG pO2 84 ABG HCO3 19 L ABG O2 Content 20.5 H ABG Base Excess -5.2 L ABG Methemoglobin 0.5 Orville Test + Hemoglobin 15.5 Carboxyhemoglobin 0.8 O2 Delivery Device Nasal cannula Liter Flow 6.00 Critical Value No Sodium 137 Potassium 4.1 Chloride 101 Carbon Dioxide 25.9 Anion Gap 10 BUN 20 H Creatinine 1.19 H Estimated GFR 44 L Random Glucose 157 H Calcium 8.8 Magnesium 2.2 Total Bilirubin 0.5 AST 29 ALT 32 Alkaline Phosphatase 90 Total Creatine Kinase 63 Troponin I 0.03 Total Protein 7.8 Albumin 3.5 03/15/18 03/15/18 03/16/18 22:40 22:40 00:30 WBC RBC Hgb Hct MCV MCH MCHC RDW Plt Count MPV Neut % (Auto) Lymph % (Auto) Lipscomb % (Auto) Eos % (Auto) Baso % (Auto) Neut # (Auto) Lymph # (Auto) Lipscomb # (Auto) Eos # (Auto) Baso # (Auto) WBC Differential Differential Comment PT 11.2 INR 1.1 APTT 24.4 32.0 H D D-Dimer Quant (PE/DVT) Greater than 35.20 H Puncture Site Patient Temperature O2 Saturation ABG pH ABG pCO2 ABG pO2 ABG HCO3 ABG O2 Content ABG Base Excess ABG Methemoglobin Orville Test Hemoglobin Carboxyhemoglobin O2 Delivery Device Liter Flow Critical Value Sodium Potassium Chloride Carbon Dioxide Anion Gap BUN Creatinine Estimated GFR Random Glucose Calcium Magnesium Total Bilirubin AST ALT Alkaline Phosphatase Total Creatine Kinase Troponin I Total Protein Albumin 03/16/18 03/16/18 06:00 06:00 WBC 17.3 H D RBC 4.76 Hgb 14.5 Hct 43.7 MCV 91.9 MCH 30.4 MCHC 33.1 RDW 13.9 Plt Count 119 L MPV 10.0 Neut % (Auto) 92.7 H Lymph % (Auto) 4.7 L Lipscomb % (Auto) 2.4 Eos % (Auto) 0.0 Baso % (Auto) 0.2 Neut # (Auto) 16.0 H Lymph # (Auto) 0.8 L Lipscomb # (Auto) 0.4 Eos # (Auto) 0.0 Baso # (Auto) 0.0 WBC Differential . Differential Comment Auto diff final PT INR APTT D-Dimer Quant (PE/DVT) Puncture Site Patient Temperature O2 Saturation ABG pH ABG pCO2 ABG pO2 ABG HCO3 ABG O2 Content ABG Base Excess ABG Methemoglobin Orville Test Hemoglobin Carboxyhemoglobin O2 Delivery Device Liter Flow Critical Value Sodium 141 Potassium 4.2 Chloride 108 H Carbon Dioxide 24.3 Anion Gap 9 BUN 17 Creatinine 0.99 Estimated GFR 54 L Random Glucose 210 H Calcium 7.9 L D Magnesium Total Bilirubin 0.6 AST 61 H ALT 64 H Alkaline Phosphatase 79 Total Creatine Kinase Troponin I Total Protein 6.5 D Albumin 2.9 L D - Diagnostic results Imaging: Impressions Chest X-Ray 03/15/18 18:13 CONCLUSION: No acute findings. Chronic interstitial changes in both lungs. Hip X-Ray 03/15/18 18:13 CONCLUSION: No fracture seen. Pelvis CT 03/15/18 19:11 CONCLUSION: 1. Mildly comminuted nondisplaced fractures of the left inferior pubic ramus. Chest CTA 03/16/18 00:00 CONCLUSION: 1. No pulmonary embolus. 2. Bronchiectasis and patchy, presumably infectious or inflammatory infiltrate of both bases. 3. Tiny bilateral pleural effusions. 4. 7 mm nodules in the right lower and upper lobes and a few scattered sub-4 mm bilateral pulmonary nodules. Six-month follow-up noncontrast chest CT is Coronary artery calcification. Hip MRI: image reviewed Hip CT: image reviewed <Dao Vidal - Last Filed: 03/16/18 14:09> - Labs Result Diagrams: 03/20/18 06:00 03/20/18 06:00 Labs: Laboratory Results - last 24 hr 03/20/18 03/20/18 06:00 06:00 WBC 8.1 RBC 4.00 Hgb 12.2 Hct 36.5 MCV 91.2 MCH 30.5 MCHC 33.5 RDW 13.4 Plt Count 93 L MPV 9.5 Sodium 143 Potassium 3.6 Chloride 103 Carbon Dioxide 31.7 Anion Gap 8 BUN 18 Creatinine 0.84 Estimated GFR 65 L Random Glucose 81 Calcium 7.7 L <Zhao Dyer - Last Filed: 03/20/18 17:13> Assessment and Plan - Problem List (1) Inferior pubic ramus fracture Code(s): S32.599A - Other specified fracture of unspecified pubis, initial encounter for closed fracture Status: Acute - Assessment and Plan 1) Left Inferior Pubic Rami Fracture -Treatment options were discussed with the patient. It appears that she has a nondisplaced fracture of the left inferior pubic rami. This is something that should do extremely well with conservative treatment. She is already ambulating with minimal discomfort. I encouraged her to continue doing so. She may fully weight-bear with no restrictions and progress her activities as tolerated. I informed her this is something that we will likely give her some discomfort for the next 4-6 weeks but should fade away. She is orthopedically cleared for discharge pending her medical workup. I recommend a follow-up with Dr. Dyer or his PA in 1 month for final set of x-rays. If she has any other concerns or questions or issues in the meantime she can call us. Thank you this consultation. Will be signing off at this point please reconsult for any further questions or problems. This patient was reviewed and discussed with Dr. Dyer and he agrees with this dictation. <Dao Vidal - Last Filed: 03/16/18 14:09> - Problem List (1) Inferior pubic ramus fracture Code(s): S32.599A - Other specified fracture of unspecified pubis, initial encounter for closed fracture Status: Acute - Assessment and Plan History, past medical history, social history, review of systems, physical exam , radiographs, assessment, and plan were reviewed. Plan of care was discussed and established. She has minimally displaced pubic rami fractures. Plan on nonoperative treatment. A mid-level provider in my office (nurse practitioner or physician ophthalmic medical assistant) may see this patient on follow-up visits and continue to implement the objectives of this plan including: Starting or adjusting medications, injections, cast application, orthotics, brace application, physical therapy, radiological studies (including x-ray, MRI, CT, ultrasound, bone scan), vascular studies, neurologic studies, specialist consultation, and proceeding with surgical management, as appropriate. <Zhao Dyer - Last Filed: 03/20/18 17:13>
--- NOTE | 2018-03-16 15:29 | ECG ---
Date Performed: 03/15/2018 Time Performed: 19:17:49 PTAGE: 77 years EKG: SUPRAVENTRICULAR TACHYCARDIA BORDERLINE RIGHT AXIS DEVIATION POSSIBLE RIGHT VENTRICULAR CON DUCTION DELAY ST DEVIATION AND MODERATE T-WAVE ABNORMALITY, CONSIDER INFERIOR ISCHEMIA ABNORMAL ECG PREVIOUS TRACING : 03/15/2018 18.18 Compared to previous tracing, the supraventricular tachycar sheba is new Otherwise no significant serial change. There is perhaps a slight increase in the inferola teral ST segment changes. The new rhythm disturbance is most consistent with atrial flutter but other re-entry mechanisms are not excluded. Rhythm strip might be useful in making a more specific rhythm determination. DOCTOR: Rupali Du Interpretating Date/Time 03/16/2018 15:27:08
--- NOTE | 2018-03-16 15:29 | ECG ---
Date Performed: 03/15/2018 Time Performed: 20:42:52 PTAGE: 77 years EKG: SINUS TACHYCARDIA LEFT ATRIAL ENLARGEMENT POSSIBLE RIGHT VENTRICULAR CONDUCTION DELAY MODER ATE ST DEPRESSION ABNORMAL ECG Mild prolongation of QT interval for the heart rate PREVIOUS TRACING : 03/15/2018 19.17 Compared to previous tracing, the rapid supraventricu lar tachycardia has resolved and the tracing has returned to it's prior baseline Clinical correlation is recommended DOCTOR: Rupali Du Interpretating Date/Time 03/16/2018 15:28:22
--- NOTE | 2018-03-16 15:29 | ECG ---
Date Performed: 03/15/2018 Time Performed: 18:18:53 PTAGE: 77 years EKG: SINUS TACHYCARDIA LEFT ATRIAL ENLARGEMENT BORDERLINE RIGHT AXIS DEVIATION POSSIBLE RIGHT VE NTRICULAR CONDUCTION DELAY NONSPECIFIC ST & T-WAVE ABNORMALITY ABNORMAL ECG PREVIOUS TRACING : 01/15/2018 09.57 Compared to previous tracing, the sinus tachycardia is new Otherwise no significant serial change . DOCTOR: Rupali Du Interpretating Date/Time 03/16/2018 15:24:09
--- NOTE | 2018-03-16 16:58 | P.CONID ---
History of Present Illness Service: ID Consult date: 03/16/18 Requesting Physician: Julio Hagan Reason for Consult: Pneumonia Primary Care Provider: Julio Elliott History of Present Illness: 77-year-old female with a history of bronchoectasis and COPD (remopte tobaccouse - quit in 1970s) sp BAL 01/15 - grew MDRO Achromobacter. Of note same bacterium was present a year ago in her resp specimen and in [id number] she also had LÓPEZ She was seen by Dr Mireles 1 week ago and sp placement of PICC, on Invanz since Monday She presented sp falll at home and was found to be in SVT with HR of 180 Minimal cough, occasional expectoration of clear sputum + SOB, dypnea I reviewed her BAL results and dw Dr Mireles Pt is afebrile, normal WBC yday, today 17 K Pt is on Ertapenem CT showed bronchiectasis and patchy, presumably infectious or inflammatory infiltrate of both bases. Review of Systems All other systems reviewed negative except as stated in HPI PMFSH - History History Provided By: Patient - Medical History Medical History: Medical History (Last Reviewed 03/16/18 @ 18:51 by Rona Will MD) SVT (supraventricular tachycardia) (Acute) Lung infection - Surgical History Surgical History: Surgical History (Last Reviewed 03/16/18 @ 18:51 by Rona Will MD) History of facelift (Acute) History of bronchoscopy (Acute) - Family History Family History: Family History (Last Reviewed 03/16/18 @ 18:51 by Rona Will MD) Mother Heart disease - Social History I have reviewed the patient's Social History: Yes - Tobacco History Second Hand Smoke Exposure: No Tobacco Use In Past 30 Days: No Smoking Status: Former smoker - Alcohol History How Often Do You Have a Drink Containing Alcohol: Never - Substance Use History Substance History: No History of Abuse - Travel History Recent Travel in the [place] Within the Last 8 Weeks: No Recent Travel Out of the Country Within the Last 8 Weeks: No - Immunization History Tetanus Immunization: Unsure Hx Influenza Vaccine This Season: No Medications and Allergies Active Medications: Active Medications Al Hydroxide/Mg Hydroxide (Milk Of Jamila Liq) 30 ml PO Q12H PRN PRN Reason: Mild Constipation Albuterol (Duoneb Neb (Joanne)) 1 ampul NEB Q8HR ALT NEB JOANNE Last Admin: 03/16/18 14:04 Dose: Not Given Bisacodyl (Dulcolax Supp) 10 mg RECTAL DAILY PRN PRN Reason: SEVERE CONSITIPATION Diltiazem HCl (Cardizem Cd 24hr) 180 mg PO HS JOANNE Heparin Sodium (Porcine) (Heparin Inj) 5,000 units SQ Q12HR JOANNE Last Admin: 03/16/18 09:14 Dose: 5,000 units Sodium Chloride (Ns Inj) 1,000 mls @ 125 mls/hr IV.CONT .Q8H JOANNE Last Admin: 03/16/18 13:03 Dose: 125 mls/hr Sodium Chloride (Ns Inj) 1,000 mls @ 50 mls/hr IV.CONT .Q20H JOANNE Last Infusion: 03/16/18 07:18 Dose: Infused Diltiazem HCl 125 mg/ Sodium (Chloride) 125 mls @ 5 mls/hr IV.CONT TITRATE PRN ; Protocol PRN Reason: Per Protocol Last Titration: 03/16/18 11:17 Dose: 5 mg/hr, 5 mls/hr Imipenem/Cilastatin Sodium 500 (mg/ Sodium Chloride) 100 mls @ 200 mls/hr IV.SIG Q6H [facility] Last Infusion: 03/16/18 14:17 Dose: Infused Lactulose (Lactulose Liq) 30 ml PO DAILY PRN PRN Reason: SEVERE CONSITIPATION Sennosides (Senokot) 17.2 mg PO Q12H PRN PRN Reason: Moderate Constipation Allergies Allergy/AdvReac Type Severity Reaction Status Date / Time sulfamethoxazole Allergy Tachycardia Verified 03/15/18 18:58 [From Bactrim] trimethoprim [From Bactrim] Allergy Tachycardia Verified 03/15/18 18:58 *MDRO Multi-Drug Resistant AdvReac Unknown n/a Uncoded 03/15/18 13:02 Organism Home Medications Medication Instructions Recorded Confirmed Type diltiazem HCl 120 mg PO HS 01/15/18 03/15/18 History ertapenem [Invanz] 1 g IV DAILY 03/14/18 03/15/18 History Exam Vital signs: Vital Signs 03/15/18 18:07 03/15/18 18:48 03/15/18 19:51 Temperature 97.6 F Pulse Rate 124 H 120 H 103 H Respiratory Rate 20 32 H 22 Blood Pressure 199/88 H 160/77 H 121/68 Pulse Oximetry 76 L 88 L 92 L 03/15/18 20:14 03/15/18 20:20 03/15/18 20:40 Temperature Pulse Rate 158 H 156 H 109 H Respiratory Rate 34 H 30 H 30 H Blood Pressure 107/71 88/57 L 129/63 Pulse Oximetry 93 L 93 L 94 L 03/15/18 20:50 03/15/18 21:00 03/15/18 21:10 Temperature Pulse Rate 91 H 97 H 103 H Respiratory Rate 29 H 26 H 26 H Blood Pressure 109/64 116/61 127/62 Pulse Oximetry 90 L 92 L 91 L 03/15/18 22:17 03/15/18 22:21 03/15/18 23:31 Temperature Pulse Rate 163 H 93 H 96 H Respiratory Rate 33 H 27 H 20 Blood Pressure 127/62 121/62 Pulse Oximetry 95 92 L 03/16/18 00:00 03/16/18 01:00 03/16/18 02:00 Temperature Pulse Rate 101 H 146 H 92 H Respiratory Rate 16 Blood Pressure 143/79 H Pulse Oximetry 92 L 03/16/18 03:00 03/16/18 04:00 03/16/18 05:00 Temperature 97.5 F L Pulse Rate 84 74 72 Respiratory Rate 16 Blood Pressure 142/74 H Pulse Oximetry 94 L 03/16/18 06:00 03/16/18 07:00 03/16/18 08:00 Temperature 97.6 F Pulse Rate 76 72 72 Respiratory Rate 18 Blood Pressure 100/56 L Pulse Oximetry 94 L 94 L 03/16/18 09:00 03/16/18 10:00 03/16/18 11:00 Temperature 97.8 F Pulse Rate 80 72 76 Respiratory Rate 18 Blood Pressure 126/60 Pulse Oximetry 93 L 03/16/18 12:00 03/16/18 13:00 03/16/18 14:00 Temperature Pulse Rate 70 72 80 Respiratory Rate Blood Pressure Pulse Oximetry 03/16/18 15:00 Temperature 97.8 F Pulse Rate 78 Respiratory Rate 18 Blood Pressure 129/69 Pulse Oximetry 93 L Intake & Output 03/15/18 03/16/18 03/16/18 18:59 06:59 18:59 Intake Total 485 / 485 2225 / 2225 Output Total 900 / 900 Balance -415 / -415 2224 Weight 43.29 kg 43.5 kg Intake: IV 125 / 125 2224 / 2224 NS Inj 1,000 ML @ 125 mls/hr IV 125 / 125 1874 / 1874 .CONT .Q8H JOANNE Rx#:[id number] Cardizem Inj 125 MG In NS Inj 100 / 100 100 ML @ 5 MG/HR 5 mls/hr IV. CONT TITRATE PRN Rx#:[id number] INVanz Inj 1,000 MG In NS Inj 100 / 100 100 ML @ 200 mls/hr IV.SIG Q24H JOANNE Rx#:[id number] Primaxin Inj 500 MG In NS Inj 100 / 100 100 ML @ 200 mls/hr IV.SIG Q6H JOANNE Rx#:[id number] Oral 360 / 360 Output: Urine 900 / 900 Other: Date of Last Bowel Movement 03/14/18 - Constitutional no acute distress, thin - Routine HEENT Exam Head: Present: normocephalic, atraumatic Eye: Present: EOMI, PERRL ENT: Present: mucous membranes moist, oropharynx clear. Absent: dentition normal - Routine Neck Exam Present: supple, full ROM. Absent: lymphadenopathy - Routine Respiratory Exam Present: CTA bilaterally. Absent: accessory muscle use, rales, rhonchi, wheezes - Routine Cardiovascular Exam Present: RRR, S1, S2, tachycardia - Routine Abdominal Exam Present: soft, normoactive bowel sounds. Absent: tenderness, distended, organomegaly, mass - Routine Extremities Exam Absent: cyanosis, clubbing, edema - Routine Skin Exam Present: intact. Absent: cyanosis, dry, warm - Routine Neurological Exam Present: alert, oriented X3, CN II-XII intact, moving all extremities, hearing grossly intact, facial asymmetry, normal speech - Routine Psychiatric Exam Present: normal affect, normal thought process, cooperative Results - Labs CBC & Chem 7: 03/16/18 06:00 03/16/18 06:00 Labs: Laboratory Results - last 24 hr 03/15/18 03/15/18 03/15/18 18:15 18:15 22:06 WBC 10.1 RBC 5.31 H Hgb 16.0 H Hct 48.7 H MCV 91.7 MCH 30.2 MCHC 32.9 RDW 14.0 Plt Count 150 MPV 9.5 Neut % (Auto) 67.5 Lymph % (Auto) 21.5 Weld % (Auto) 10.1 H Eos % (Auto) 0.4 Baso % (Auto) 0.5 Neut # (Auto) 6.8 Lymph # (Auto) 2.2 [place] # (Auto) 1.0 H Eos # (Auto) 0.0 Baso # (Auto) 0.0 WBC Differential . Differential Comment Auto diff final PT INR APTT D-Dimer Quant (PE/DVT) Puncture Site Right radial Patient Temperature 98.6 O2 Saturation 94 ABG pH 7.37 L ABG pCO2 34 L ABG pO2 84 ABG HCO3 19 L ABG O2 Content 20.5 H ABG Base Excess -5.2 L ABG Methemoglobin 0.5 Orville Test + Hemoglobin 15.5 Carboxyhemoglobin 0.8 O2 Delivery Device Nasal cannula Liter Flow 6.00 Critical Value No Sodium 137 Potassium 4.1 Chloride 101 Carbon Dioxide 25.9 Anion Gap 10 BUN 20 H Creatinine 1.19 H Estimated GFR 44 L Random Glucose 157 H Calcium 8.8 Magnesium 2.2 Total Bilirubin 0.5 AST 29 ALT 32 Alkaline Phosphatase 90 Total Creatine Kinase 63 Troponin I 0.03 Total Protein 7.8 Albumin 3.5 03/15/18 03/15/18 03/16/18 22:40 22:40 00:30 WBC RBC Hgb Hct MCV MCH MCHC RDW Plt Count MPV Neut % (Auto) Lymph % (Auto) [place]eld % (Auto) Eos % (Auto) Baso % (Auto) Neut # (Auto) Lymph # (Auto) [place] # (Auto) Eos # (Auto) Baso # (Auto) WBC Differential Differential Comment PT 11.2 INR 1.1 APTT 24.4 32.0 H D D-Dimer Quant (PE/DVT) Greater than 35.20 H Puncture Site Patient Temperature O2 Saturation ABG pH ABG pCO2 ABG pO2 ABG HCO3 ABG O2 Content ABG Base Excess ABG Methemoglobin [place]ville Test Hemoglobin Carboxyhemoglobin O2 Delivery Device Liter Flow Critical Value Sodium Potassium Chloride Carbon Dioxide Anion Gap BUN Creatinine Estimated GFR Random Glucose Calcium Magnesium Total Bilirubin AST ALT Alkaline Phosphatase Total Creatine Kinase Troponin I Total Protein Albumin 03/16/18 03/16/18 06:00 06:00 WBC 17.3 H D RBC 4.76 Hgb 14.5 Hct 43.7 MCV 91.9 MCH 30.4 MCHC 33.1 RDW 13.9 Plt Count 119 L MPV 10.0 Neut % (Auto) 92.7 H Lymph % (Auto) 4.7 L Weld % (Auto) 2.4 Eos % (Auto) 0.0 Baso % (Auto) 0.2 Neut # (Auto) 16.0 H Lymph # (Auto) 0.8 L [place]eld # (Auto) 0.4 Eos # (Auto) 0.0 Baso # (Auto) 0.0 WBC Differential . Differential Comment Auto diff final PT INR APTT D-Dimer Quant (PE/DVT) Puncture Site Patient Temperature O2 Saturation ABG pH ABG pCO2 ABG pO2 ABG HCO3 ABG O2 Content ABG Base Excess ABG Methemoglobin [place] Test Hemoglobin Carboxyhemoglobin O2 Delivery Device Liter Flow Critical Value Sodium 141 Potassium 4.2 Chloride 108 H Carbon Dioxide 24.3 Anion Gap 9 BUN 17 Creatinine 0.99 Estimated GFR 54 L Random Glucose 210 H Calcium 7.9 L D Magnesium Total Bilirubin 0.6 AST 61 H ALT 64 H Alkaline Phosphatase 79 Total Creatine Kinase Troponin I Total Protein 6.5 D Albumin 2.9 L D - Imaging Impressions Chest X-Ray 03/15/18 18:13 CONCLUSION: No acute findings. Chronic interstitial changes in both lungs. Hip X-Ray 03/15/18 18:13 CONCLUSION: No fracture seen. Pelvis CT 03/15/18 19:11 CONCLUSION: 1. Mildly comminuted nondisplaced fractures of the left inferior pubic ramus. Chest CTA 03/16/18 00:00 CONCLUSION: 1. No pulmonary embolus. 2. Bronchiectasis and patchy, presumably infectious or inflammatory infiltrate of both bases. 3. Tiny bilateral pleural effusions. 4. 7 mm nodules in the right lower and upper lobes and a few scattered sub-4 mm bilateral pulmonary nodules. Six-month follow-up noncontrast chest CT is Coronary artery calcification. Assessment and Plan - Plan Achromobacter PNA recently Chropnic bronchoectatic disease H/o LÓPEZ - will switch to Primaxin repeat sputum, including AFB. NO need for TB isolation, TB not suspected dw JULIÁN Barksdale
[2018-03-16] MEDS: dilTIAZem CD 180 MG Capsule PO SCH (20:30)
[2018-03-16] MEDS: guaiFENesin 600 MG ER Tablet PO SCH (20:30)
--- NOTE | 2018-03-16 21:41 | MB ---
cc: Jose Fernandez MD DATE: 03/16/2018 REASON FOR CONSULTATION: COPD, chronic bronchitis with bronchiectasis. HISTORY OF PRESENT ILLNESS: This is a 77-year-old lady who has a history of chronic bronchitis and bronchiectasis and has been on antibiotic therapy intermittently for persistent symptoms of cough, yellow expectoration and a history of exacerbation of her bronchiectasis. The patient has had CAT scans done in the past and more recently found to have increasing interstitial infiltrates and bronchiectatic changes for which she underwent a bronchoscopy more than 4 weeks ago and was found to have resistant gram-negative bacteria cultured and was seen by the infectious disease service for evidence of Achromobacter xylosoxidans that was cultured, but no evidence of mycobacterial disease. The patient had then been started on Invanz intravenously this past week. She apparently had about 3 doses and then she started to have a rapid heart beat and shortness of breath and thus presented herself to the emergency room, following which she was admitted to the hospital. Her heart rate was in the 160 range, which has now been controlled with use of Cardizem, and cardiology evaluation is ongoing. The patient has no fevers or chills. No hemoptysis. She has lost some weight. She denies any headaches or blackout spells. PAST MEDICAL HISTORY: Includes a history of recurrent exacerbation of bronchiectasis, history of mycobacterium avium infection remotely, prior history of bronchoscopy, history of face lift and prior history of pneumonia. HABITS: The patient does not smoke. No significant alcohol use. FAMILY HISTORY: Significant for heart disease in her mother. REVIEW OF SYSTEMS: The patient has lost weight. She has cough, congestion, postnasal drip and wheezing. She has epigastric distress and reflux. She has had no urinary symptoms. Denies leg or calf muscle pain, but has some lower back pain. Denies any skin rash. MEDICATION LIST: Reviewed from the chart. ALLERGIES: NO DRUG ALLERGIES ARE LISTED, BUT THE PATIENT IS INTOLERANT TO MOST ANTIBIOTICS AND SOMETIMES IS ABLE TO TAKE AMOXICILLIN ORALLY. PHYSICAL EXAMINATION: GENERAL: This is a thinly built, elderly lady who was pale and mildly dyspneic at rest. She is on oxygen. VITAL SIGNS: Blood pressure 127/60, pulse 112, respirations 24, temperature 98.9. HEENT: Head is normocephalic. Pupils are reactive. Tongue is moist. Throat is injected. Nasal mucosa is clear. NECK: Supple. No bruits, lymphadenopathy or thyromegaly. CHEST: Equal movements with distant breath sounds and expiratory wheezes bilaterally with crackles in the right lower lung field. HEART: The heart sounds are irregular. S1 and S2 with no definite murmur. No S3. ABDOMEN: Soft and scaphoid without masses. No organomegaly or tenderness. Bowel sounds are active. EXTREMITIES: No lesions. No edema. No calf tenderness. NEUROLOGIC: Reflexes are 1+ with no gross motor deficits. Cranial nerves are grossly intact. RECTAL: Deferred. SKIN: No lesions. IMPRESSION: 1. Supraventricular tachycardia, resolving. 2. Chronic obstructive pulmonary disease with chronic bronchitis and bronchiectasis with exacerbation. 3. Probable basilar pneumonia. 4. Malnutrition. 5. Deconditioning. PLAN: The patient has been placed on O2 at 2 liters nasal cannula p.r.n. We will add Mucinex 600 mg p.o. b.i.d. Also, continue with Cardizem for her supraventricular tachycardia. The patient's sputum will be sent for Gram stain and culture. An infectious disease consultation will be requested to evaluate her antibiotic therapy. Postural drainage will be given 4 times a day. Nebulized DuoNeb solution added t.i.d. p.r.n. Followup chest x-ray this week. Thank you, Dr. Mcclain, for this consultation. Jose Fernandez MD VLUCIE/roberto , 06:48 PM , 07:06 PM
[2018-03-16] MEDS ORDERED: dilTIAZem CD 180 MG Capsule PO SCH (22:00)
[2018-03-17] MEDS: Sod Chloride 0.9% Inj 1,000 ML IV.CONT SCH ×3 (01:31→13:47)
[2018-03-17 03:42] LABS: Bilirubin,Urine Negative (Negative); Clarity,Urine Clear (Clear); Color,Urine Colorless (Yellw/Straw); Glucose,Urine (UA) 50 mg/dL (Negative); Hyaline Casts,Urine 1 /lpf (0-3); Leukocyte Esterase,Urine Negative (Negative); Nitrite,Urine Negative (Negative); Specific Gravity,Urine 1.008 (1.002-1.035)
[2018-03-17 06:21] LABS: Hematocrit 38.7 % (35.0-46.0); Hemoglobin 12.9 gm/dL (11.6-15.3); Mean Corpuscular HGB Conc 33.3 % (32.0-36.0); Mean Corpuscular Hemoglobin 30.4 pg (27.0-34.0); Mean Corpuscular Volume 91.2 fL (80.0-100.0); Mean Platelet Volume 9.6 fL (7.0-11.0); Platelet Count 97 th/mm3 (150-450); Red Blood Count 4.25 mil/mm3 (4.00-5.30); Red Cell Distribution Width 14.6 % (11.6-17.2); White Blood Count 17.7 th/mm3 (4.0-11.0)
--- NOTE | 2018-03-17 06:25 | XR ---
EXAM DATE: 03/17/2018 12:00 AM EDT AGE/SEX: 77 years / Female INDICATIONS: Shortness of breath, possible pulmonary disease. CLINICAL DATA: This is the patient's subsequent encounter. Patient reports that signs and symptoms h ave been present for 3 days and indicates a pain score of 0/10. MEDICAL/SURGICAL HISTORY: Chronic obstructive pulmonary disease. Gastrointestinal bleed. None. COMPARISON: [facility], CHEST 1V SINGLE AP, 03/15/2018. . FINDINGS: There is a PICC line in place from the right arm with the tip overlying the SVC. The heart size is no rmal. Lungs appear hyperinflated. There is interstitial disease seen at the lower lungs bilaterally. Focal density at the left lateral base at the costophrenic angle region. CONCLUSION: Hyperinflated lungs with suspected interstitial disease at the bases. Electronically signed by: Julio Pepe MD 03/17/2018 6:24 AM EDT
--- NOTE | 2018-03-17 07:22 | P.PNCA ---
Subjective Interval history: alert in nad Medications and Allergies Active Medications: Active Medications Al Hydroxide/Mg Hydroxide (Milk Of Magnesia Liq) 30 ml PO Q12H PRN PRN Reason: Mild Constipation Albuterol (Duoneb Neb (Joanne)) 1 ampul NEB Q8HR ALT NEB [facility] Last Admin: 03/16/18 19:08 Dose: 1 ampul Bisacodyl (Dulcolax Supp) 10 mg RECTAL DAILY PRN PRN Reason: SEVERE CONSITIPATION Diltiazem HCl (Cardizem Cd 24hr) 180 mg PO HS [facility] Last Admin: 03/16/18 20:30 Dose: 180 mg Guaifenesin (Mucinex Er) 600 mg PO BID [facility] Last Admin: 03/16/18 20:30 Dose: 600 mg Heparin Sodium (Porcine) (Heparin Inj) 5,000 units SQ Q12HR [facility] Last Admin: 03/16/18 20:31 Dose: 5,000 units Sodium Chloride (Ns Inj) 1,000 mls @ 125 mls/hr IV.CONT .Q8H [facility] Last Admin: 03/17/18 01:31 Dose: 125 mls/hr Sodium Chloride (Ns Inj) 1,000 mls @ 50 mls/hr IV.CONT .Q20H [facility] Last Admin: 03/16/18 19:15 Dose: Not Given Diltiazem HCl 125 mg/ Sodium (Chloride) 125 mls @ 5 mls/hr IV.CONT TITRATE PRN ; Protocol PRN Reason: Per Protocol Last Titration: 03/16/18 15:30 Dose: 0 mg/hr, 0 mls/hr Imipenem/Cilastatin Sodium 500 (mg/ Sodium Chloride) 100 mls @ 200 mls/hr IV.SIG Q6H [facility] Last Admin: 03/17/18 02:51 Dose: Not Given Lactulose (Lactulose Liq) 30 ml PO DAILY PRN PRN Reason: SEVERE CONSITIPATION Sennosides (Senokot) 17.2 mg PO Q12H PRN PRN Reason: Moderate Constipation Allergies Allergy/AdvReac Type Severity Reaction Status Date / Time sulfamethoxazole Allergy Tachycardia Verified 03/15/18 18:58 [From Bactrim] trimethoprim [From Bactrim] Allergy Tachycardia Verified 03/15/18 18:58 *MDRO Multi-Drug Resistant AdvReac Unknown n/a Uncoded 03/15/18 13:02 Organism Home Medications Medication Instructions Recorded Confirmed Type diltiazem HCl 120 mg PO HS 01/15/18 03/15/18 History ertapenem [Invanz] 1 g IV DAILY 03/14/18 03/15/18 History Physical Exam Vital signs: Vital Signs 03/16/18 08:00 03/16/18 09:00 03/16/18 10:00 Temperature Pulse Rate 72 80 72 Respiratory Rate Blood Pressure Pulse Oximetry 94 L 03/16/18 11:00 03/16/18 12:00 03/16/18 13:00 Temperature 97.8 F Pulse Rate 76 70 72 Respiratory Rate 18 Blood Pressure 126/60 Pulse Oximetry 93 L 03/16/18 14:00 03/16/18 15:00 03/16/18 16:00 Temperature 97.8 F Pulse Rate 80 73 76 Respiratory Rate 18 Blood Pressure 129/69 Pulse Oximetry 93 L 03/16/18 17:00 03/16/18 18:00 03/16/18 19:00 Temperature Pulse Rate 80 86 73 Respiratory Rate 16 Blood Pressure 123/75 Pulse Oximetry 93 L 03/16/18 19:14 03/16/18 19:15 03/16/18 20:00 Temperature Pulse Rate 94 H 88 Respiratory Rate 18 Blood Pressure Pulse Oximetry 93 L 93 L 03/16/18 21:00 03/16/18 22:00 03/16/18 23:00 Temperature 97.6 F Pulse Rate 86 84 84 Respiratory Rate 16 Blood Pressure 129/65 Pulse Oximetry 96 03/17/18 00:00 03/17/18 01:00 03/17/18 02:00 Temperature Pulse Rate 78 68 72 Respiratory Rate Blood Pressure Pulse Oximetry 03/17/18 03:00 03/17/18 04:00 03/17/18 05:00 Temperature Pulse Rate 78 72 64 Respiratory Rate 16 Blood Pressure 127/59 L Pulse Oximetry 96 03/17/18 06:00 Temperature Pulse Rate 68 Respiratory Rate Blood Pressure Pulse Oximetry Intake & Output 03/16/18 03/17/18 03/17/18 18:59 06:59 18:59 Intake Total 2945 / 2945 1480 / 1480 Output Total 650 / 650 1500 / 1500 Balance 2295 / 2295 -20 / -20 Weight 43.5 kg Intake: IV 2225 / 2225 1000 / 1000 NS Inj 1,000 ML @ 125 mls/hr IV 1875 / 1875 1000 / 1000 .CONT .Q8H [facility] Rx#:[id number] Cardizem Inj 125 MG In NS Inj 100 / 100 100 ML @ 5 MG/HR 5 mls/hr IV. CONT TITRATE PRN Rx#:[id number] INVanz Inj 1,000 MG In NS Inj 100 / 100 100 ML @ 200 mls/hr IV.SIG Q24H JOANNE Rx#:[id number] Primaxin Inj 500 MG In NS Inj 100 / 100 100 ML @ 200 mls/hr IV.SIG Q6H [facility]ANNE Rx#:[id number] Oral 720 / 720 480 / 480 Output: Urine 650 / 650 1500 / 1500 Other: Date of Last Bowel Movement 03/16/18 03/16/18 # Bowel Movements 1 Results 03/17/18 05:44 03/16/18 06:00 Cardiac Enzymes 03/15/18 03/16/18 Range/Units 18:15 06:00 AST 29 61 H (15-37) U/L Troponin I 0.03 (0.02-0.05) ng/mL Coagulation 03/15/18 03/16/18 Range/Units 22:40 00:30 PT 11.2 (9.8-11.6) sec APTT 24.4 32.0 H D (24.3-30.1) sec CBC 03/15/18 03/16/18 03/17/18 Range/Units 18:15 06:00 05:44 WBC 10.1 17.3 H D 17.7 H (4.0-11.0) th/mm3 RBC 5.31 H 4.76 4.25 (4.00-5.30) mil/mm3 Hgb 16.0 H 14.5 12.9 (11.6-15.3) gm/dL Hct 48.7 H 43.7 38.7 (35.0-46.0) % Plt Count 150 119 L 97 L (150-450) th/mm3 Neut # (Auto) 6.8 16.0 H (1.8-7.7) th/mm3 Lymph # (Auto) 2.2 0.8 L (1.0-4.8) th/mm3 [place] # (Auto) 1.0 H 0.4 (0.0-0.9) th/mm3 Eos # (Auto) 0.0 0.0 (0.0-0.4) th/mm3 Baso # (Auto) 0.0 0.0 (0.0-0.2) th/mm3 Comprehensive Metabolic Panel 03/15/18 03/16/18 Range/Units 18:15 06:00 Sodium 137 141 (136-145) meq/L Potassium 4.1 4.2 (3.5-5.1) meq/L Chloride 101 108 H (98-107) meq/L Carbon Dioxide 25.9 24.3 (21.0-32.0) meq/L BUN 20 H 17 (7-18) mg/dL Creatinine 1.19 H 0.99 (0.50-1.00) mg/dL Calcium 8.8 7.9 L D (8.5-10.1) mg/dL AST 29 61 H (15-37) U/L ALT 32 64 H (10-53) U/L Alkaline Phosphatase 90 79 (45-117) U/L Total Protein 7.8 6.5 D (6.4-8.2) g/dL Albumin 3.5 2.9 L D (3.4-5.0) g/dL Intake and Output 03/16/18 03/17/18 03/17/18 22:59 06:59 14:59 Intake Total 1720 / 1720 480 / 480 Output Total 650 / 650 1500 / 1500 Balance 1070 / 1070 -1020 / -1020 Intake: IV 1000 / 1000 NS Inj 1,000 ML @ 125 mls/hr IV 1000 / 1000 .CONT .Q8H [facility] Rx#:[id number] Oral 720 / 720 480 / 480 Output: Urine 650 / 650 1500 / 1500 Other: Date of Last Bowel Movement 03/16/18 03/16/18 # Bowel Movements 1 Weight 43.5 kg - Imaging and Cardiology Imaging: Impressions Chest X-Ray 03/15/18 18:13 CONCLUSION: No acute findings. Chronic interstitial changes in both lungs. Hip X-Ray 03/15/18 18:13 CONCLUSION: No fracture seen. Pelvis CT 03/15/18 19:11 CONCLUSION: 1. Mildly comminuted nondisplaced fractures of the left inferior pubic ramus. Chest CTA 03/16/18 00:00 CONCLUSION: 1. No pulmonary embolus. 2. Bronchiectasis and patchy, presumably infectious or inflammatory infiltrate of both bases. 3. Tiny bilateral pleural effusions. 4. 7 mm nodules in the right lower and upper lobes and a few scattered sub-4 mm bilateral pulmonary nodules. Six-month follow-up noncontrast chest CT is Coronary artery calcification. Chest X-Ray 03/17/18 00:00 CONCLUSION: Hyperinflated lungs with suspected interstitial disease at the bases. Assessment and Plan - Assessment (1) SVT (supraventricular tachycardia) Code(s): I47.1 - Supraventricular tachycardia Status: Acute (2) Acute hip pain Code(s): M25.559 - Pain in unspecified hip Status: Acute (3) Inferior pubic ramus fracture Code(s): S32.599A - Other specified fracture of unspecified pubis, initial encounter for closed fracture Status: Acute (4) History of bronchoscopy Code(s): Z98.890 - Other specified postprocedural states Status: Acute (5) SVT (supraventricular tachycardia) Code(s): I47.1 - Supraventricular tachycardia Status: Acute - Plan 1.) SVT - no furthetr events events on cardizem cd 180 mg qd, d/w nurse 03/17/18 v@ 7 am
[2018-03-17] MEDS: Heparin - SQ 10,000 UNITS/ML Vial SQ SCH ×2 (09:01→21:08)
[2018-03-17] MEDS: guaiFENesin 600 MG ER Tablet PO SCH ×2 (09:01→21:08)
--- NOTE | 2018-03-17 14:28 | P.PNIM ---
Subjective Interval history: 77-year-old female with history of recent pubic rami fracture admitted for management of supraventricular tachycardia. Her tachycardia subsided yesterday and has not returned. 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 Physical Exam Vital signs: Vital Signs 03/16/18 15:00 03/16/18 16:00 03/16/18 17:00 Temperature 97.8 F Pulse Rate 73 76 80 Respiratory Rate 18 Blood Pressure 129/69 Pulse Oximetry 93 L 03/16/18 18:00 03/16/18 19:00 03/16/18 19:14 Temperature Pulse Rate 86 73 Respiratory Rate 16 Blood Pressure 123/75 Pulse Oximetry 93 L 93 L 03/16/18 19:15 03/16/18 20:00 03/16/18 21:00 Temperature Pulse Rate 94 H 88 86 Respiratory Rate 18 Blood Pressure Pulse Oximetry 93 L 03/16/18 22:00 03/16/18 23:00 03/17/18 00:00 Temperature 97.6 F Pulse Rate 84 84 78 Respiratory Rate 16 Blood Pressure 129/65 Pulse Oximetry 96 03/17/18 01:00 03/17/18 02:00 03/17/18 03:00 Temperature Pulse Rate 68 72 78 Respiratory Rate 16 Blood Pressure 127/59 L Pulse Oximetry 96 03/17/18 04:00 03/17/18 05:00 03/17/18 06:00 Temperature Pulse Rate 72 64 68 Respiratory Rate Blood Pressure Pulse Oximetry 03/17/18 07:00 03/17/18 08:00 03/17/18 09:00 Temperature 98.1 F Pulse Rate 73 70 82 Respiratory Rate 18 Blood Pressure 140/64 Pulse Oximetry 96 96 03/17/18 10:00 03/17/18 11:00 03/17/18 11:46 Temperature 98.0 F Pulse Rate 74 83 77 Respiratory Rate 18 14 Blood Pressure 124/66 Pulse Oximetry 97 91 L 03/17/18 12:00 03/17/18 13:48 03/17/18 14:00 Temperature Pulse Rate 82 98 H 81 Respiratory Rate Blood Pressure Pulse Oximetry Intake & Output 03/16/18 03/17/18 03/17/18 18:59 06:59 18:59 Intake Total 2945 / 2945 1480 / 1480 1600 / 1600 Output Total 650 / 650 1500 / 1500 Balance 2295 / 2295 -20 / -20 1600 / 1600 Weight 43.5 kg Intake: IV 2225 / 2225 1000 / 1000 1600 / 1600 NS Inj 1,000 ML @ 125 mls/hr IV 1875 / 1875 1000 / 1000 1500 / 1500 .CONT .Q8H [facility] Rx#:[id number] Cardizem Inj 125 MG In NS Inj 100 / 100 100 ML @ 5 MG/HR 5 mls/hr IV. CONT TITRATE PRN Rx#:[id number] INVanz Inj 1,000 MG In NS Inj 100 / 100 100 / 100 100 ML @ 200 mls/hr IV.SIG Q24H [facility] Rx#:[id number] Primaxin Inj 500 MG In NS Inj 100 / 100 100 ML @ 200 mls/hr IV.SIG Q6H [facility] Rx#:[id number] Oral 720 / 720 480 / 480 Output: Urine 650 / 650 1500 / 1500 Other: Date of Last Bowel Movement 03/16/18 03/16/18 03/16/18 # Bowel Movements 1 Narrative: GENERAL: AAOx3, no acute distress, generally weak SKIN: Warm and dry. No rashes HEAD: Atruamtic, normocephalic. EYES: No scleral icterus. No injection or drainage. ENT: Moist mucous membranes, patent nares, no erythema of oropharynx. NECK: Supple, trachea midline. No JVD or lymphadenopathy. Normal thyroid. CARDIOVASCULAR: Regular rate and rhythm. No murmurs, gallops, or rubs. RESPIRATORY: Breath sounds clear equal bilaterally. No crackles or wheezes. No accessory muscle use. GASTROINTESTINAL: Abdomen soft, non-tender, nondistended, normal active bowel sounds MUSCULOSKELETAL: No cyanosis, or edema. NEURO: CN II-XII grossly intact, no focal deficits, no slurring of speech Results - Labs CBC & Chem 7: 03/17/18 05:44 03/16/18 06:00 Laboratory Results - last 24 hr 03/17/18 03/17/18 03:08 05:44 WBC 17.7 H RBC 4.25 Hgb 12.9 Hct 38.7 MCV 91.2 MCH 30.4 MCHC 33.3 RDW 14.6 Plt Count 97 L MPV 9.6 Urine Color Colorless Urine Clarity Clear Urine pH 5.0 Ur Specific [place] 1.008 Urine Protein Negative Urine Glucose (UA) 50 Urine Ketones Negative Urine Occult Blood Small H Urine Nitrate Negative Urine Bilirubin Negative Urine Urobilinogen Less than 2 Ur Leukocyte Esterase Negative Urine RBC Less than 1 Urine WBC Less than 1 Hyaline Casts 1 Micro UA Comment Culture not ind Ur Microscopic Review Not Reportable Urine Culture Comments Culture not ind - Imaging Impressions Chest X-Ray 03/17/18 00:00 CONCLUSION: Hyperinflated lungs with suspected interstitial disease at the bases. Assessment and Plan - Plan Supraventricular tachycardia Required 3 doses of adenosine in the emergency department. Converted on diltiazem drip. Patient seems to be stable, transitioning to extended release oral Cardizem and drip weaned. It was determined that ertapenem was not the cause of her tachycardia, ertapenem resumed today Continue to monitor, if SVT does not return patient may be discharged tomorrow Chronic bronchitis with resistant organism Continue ertapenem Elevated d-dimer There is no pulmonary embolism on the CT. We will stop the heparin drip. Pelvic pain nondisplaced left pubic rami fx; ortho recommending conservative management Discharge planning If patient remains free of SVT through tomorrow she could go home with current p.o. meds
[2018-03-17] MEDS: dilTIAZem CD 180 MG Capsule PO SCH (21:08)
[2018-03-18 05:27] LABS: Hematocrit 37.7 % (35.0-46.0); Hemoglobin 12.8 gm/dL (11.6-15.3); Mean Corpuscular HGB Conc 33.8 % (32.0-36.0); Mean Corpuscular Hemoglobin 30.8 pg (27.0-34.0); Mean Platelet Volume 9.1 fL (7.0-11.0); Platelet Count 89 th/mm3 (150-450); Red Blood Count 4.14 mil/mm3 (4.00-5.30); White Blood Count 12.2 th/mm3 (4.0-11.0)
[2018-03-18 05:48] LABS: Calcium 7.7 mg/dL (8.5-10.1); Carbon Dioxide 31.7 meq/L (21.0-32.0); Potassium 3.7 meq/L (3.5-5.1)
[2018-03-18] MEDS: guaiFENesin 600 MG ER Tablet PO SCH ×2 (08:22→20:57)
[2018-03-18] MEDS: Heparin - SQ 10,000 UNITS/ML Vial SQ SCH ×2 (08:22→21:07)
--- NOTE | 2018-03-18 16:05 | P.PNCA ---
Subjective Interval history: alert in nad Medications and Allergies Active Medications: Active Medications Al Hydroxide/Mg Hydroxide (Milk Of Magnesia Liq) 30 ml PO Q12H PRN PRN Reason: Mild Constipation Albuterol (Duoneb Neb (Joanne)) 1 ampul NEB Q8HR NEB [facility] Last Admin: 03/18/18 16:00 Dose: Not Given Bisacodyl (Dulcolax Supp) 10 mg RECTAL DAILY PRN PRN Reason: SEVERE CONSITIPATION Diltiazem HCl (Cardizem Cd 24hr) 180 mg PO HS [facility] Last Admin: 03/17/18 21:08 Dose: 180 mg Guaifenesin (Mucinex Er) 600 mg PO BID [facility] Last Admin: 03/18/18 08:22 Dose: 600 mg Heparin Sodium (Porcine) (Heparin Inj) 5,000 units SQ Q12HR [facility] Last Admin: 03/18/18 08:22 Dose: 5,000 units Diltiazem HCl 125 mg/ Sodium (Chloride) 125 mls @ 5 mls/hr IV.CONT TITRATE PRN ; Protocol PRN Reason: Per Protocol Last Titration: 03/16/18 15:30 Dose: 0 mg/hr, 0 mls/hr Ertapenem 1,000 mg/ Sodium (Chloride) 100 mls @ 200 mls/hr IV.SIG Q24H [facility] Last Infusion: 03/18/18 09:45 Dose: Infused Lactulose (Lactulose Liq) 30 ml PO DAILY PRN PRN Reason: SEVERE CONSITIPATION Sennosides (Senokot) 17.2 mg PO Q12H PRN PRN Reason: Moderate Constipation Allergies Allergy/AdvReac Type Severity Reaction Status Date / Time sulfamethoxazole Allergy Tachycardia Verified 03/15/18 18:58 [From Bactrim] trimethoprim [From Bactrim] Allergy Tachycardia Verified 03/15/18 18:58 *MDRO Multi-Drug Resistant AdvReac Unknown n/a Uncoded 03/15/18 13:02 Organism Home Medications Medication Instructions Recorded Confirmed Type diltiazem HCl 120 mg PO HS 01/15/18 03/15/18 History ertapenem [Invanz] 1 g IV DAILY 03/14/18 03/15/18 History Physical Exam Vital signs: Vital Signs 03/17/18 16:38 03/17/18 17:00 03/17/18 18:00 Temperature Pulse Rate 95 H 102 H 90 Respiratory Rate 14 Blood Pressure Pulse Oximetry 03/17/18 19:00 03/17/18 20:00 03/17/18 21:00 Temperature 97.3 F L Pulse Rate 106 H 96 H 92 H Respiratory Rate 18 Blood Pressure 150/87 H Pulse Oximetry 96 94 L 03/17/18 22:00 03/17/18 23:00 03/18/18 00:00 Temperature 98 F Pulse Rate 82 98 H 110 H Respiratory Rate 18 Blood Pressure 136/78 Pulse Oximetry 92 L 03/18/18 01:00 03/18/18 02:00 03/18/18 03:00 Temperature 98.1 F Pulse Rate 96 H 98 H 101 H Respiratory Rate 18 Blood Pressure 120/63 Pulse Oximetry 95 03/18/18 04:00 03/18/18 05:00 03/18/18 06:00 Temperature Pulse Rate 101 H 96 H 89 Respiratory Rate Blood Pressure Pulse Oximetry 03/18/18 07:00 03/18/18 08:00 03/18/18 08:16 Temperature 97.9 F Pulse Rate 87 78 82 Respiratory Rate 18 14 Blood Pressure 134/74 Pulse Oximetry 95 98 03/18/18 09:00 03/18/18 10:00 03/18/18 11:00 Temperature 97.9 F Pulse Rate 104 H 88 76 Respiratory Rate 18 Blood Pressure 128/72 Pulse Oximetry 96 03/18/18 12:00 03/18/18 13:00 03/18/18 14:00 Temperature Pulse Rate 90 112 H 78 Respiratory Rate Blood Pressure Pulse Oximetry 03/18/18 15:00 03/18/18 16:00 Temperature Pulse Rate 79 92 H Respiratory Rate Blood Pressure Pulse Oximetry Intake & Output 03/17/18 03/18/18 03/18/18 18:59 06:59 18:59 Intake Total 2350 / 2350 480 / 480 100 / 100 Output Total 2100 / 2100 900 / 900 Balance 250 / 250 -420 / -420 100 / 100 Weight 43.5 kg Intake: IV 1600 / 1600 100 / 100 NS Inj 1,000 ML @ 125 mls/hr IV 1500 / 1500 .CONT .Q8H [facility] Rx#:[id number] INVanz Inj 1,000 MG In NS Inj 100 / 100 100 / 100 100 ML @ 200 mls/hr IV.SIG Q24H [facility] Rx#:[id number] Oral 750 / 750 480 / 480 Output: Urine 2100 / 2100 900 / 900 Stool 0 / 0 Other: Post Void Residual 7 Date of Last Bowel Movement 03/17/18 03/17/18 03/17/18 # Bowel Movements 1 Results 03/18/18 05:15 03/18/18 05:15 CBC 03/17/18 03/18/18 Range/Units 05:44 05:15 WBC 17.7 H 12.2 H (4.0-11.0) th/mm3 RBC 4.25 4.14 (4.00-5.30) mil/mm3 Hgb 12.9 12.8 (11.6-15.3) gm/dL Hct 38.7 37.7 (35.0-46.0) % Plt Count 97 L 89 L (150-450) th/mm3 Comprehensive Metabolic Panel 03/18/18 Range/Units 05:15 Sodium 142 (136-145) meq/L Potassium 3.7 (3.5-5.1) meq/L Chloride 105 (98-107) meq/L Carbon Dioxide 31.7 (21.0-32.0) meq/L BUN 15 (7-18) mg/dL Creatinine 0.86 (0.50-1.00) mg/dL Calcium 7.7 L (8.5-10.1) mg/dL Intake and Output 03/18/18 03/18/18 03/18/18 06:59 14:59 22:59 Intake Total 480 / 480 100 / 100 Output Total 900 / 900 Balance -420 / -420 100 / 100 Intake: IV 100 / 100 INVanz Inj 1,000 MG In NS Inj 100 / 100 100 ML @ 200 mls/hr IV.SIG Q24H [facility] Rx#:[id number] Oral 480 / 480 Output: Urine 900 / 900 Stool 0 / 0 Other: Date of Last Bowel Movement 03/17/18 Weight 43.5 kg - Imaging and Cardiology Imaging: Impressions Chest X-Ray 03/17/18 00:00 CONCLUSION: Hyperinflated lungs with suspected interstitial disease at the bases. Assessment and Plan - Assessment (1) SVT (supraventricular tachycardia) Code(s): I47.1 - Supraventricular tachycardia Status: Acute (2) Acute hip pain Code(s): M25.559 - Pain in unspecified hip Status: Acute (3) Inferior pubic ramus fracture Code(s): S32.599A - Other specified fracture of unspecified pubis, initial encounter for closed fracture Status: Acute (4) History of bronchoscopy Code(s): Z98.890 - Other specified postprocedural states Status: Acute (5) SVT (supraventricular tachycardia) Code(s): I47.1 - Supraventricular tachycardia Status: Acute - Plan 1.) SVT - no further events events on cardizem cd 180 mg qd, d/w nurse 03/17/18
--- NOTE | 2018-03-18 16:47 | P.PNIM ---
Subjective Interval history: Patient's heart has been in the 90-110 range, far better than her presentation with SVT. She feels ready to leave the hospital, but would like to go to rehab. Prior she expressed a wish to go home so we will provide her a list of rehab center options and plan for discharge tomorrow. Physical Exam Vital signs: Vital Signs 03/17/18 17:00 03/17/18 18:00 03/17/18 19:00 Temperature 97.3 F L Pulse Rate 102 H 90 106 H Respiratory Rate 18 Blood Pressure 150/87 H Pulse Oximetry 96 03/17/18 20:00 03/17/18 21:00 03/17/18 22:00 Temperature Pulse Rate 96 H 92 H 82 Respiratory Rate Blood Pressure Pulse Oximetry 94 L 03/17/18 23:00 03/18/18 00:00 03/18/18 01:00 Temperature 98 F Pulse Rate 98 H 110 H 96 H Respiratory Rate 18 Blood Pressure 136/78 Pulse Oximetry 92 L 03/18/18 02:00 03/18/18 03:00 03/18/18 04:00 Temperature 98.1 F Pulse Rate 98 H 101 H 101 H Respiratory Rate 18 Blood Pressure 120/63 Pulse Oximetry 95 03/18/18 05:00 03/18/18 06:00 03/18/18 07:00 Temperature 97.9 F Pulse Rate 96 H 89 87 Respiratory Rate 18 Blood Pressure 134/74 Pulse Oximetry 95 03/18/18 08:00 03/18/18 08:16 03/18/18 09:00 Temperature Pulse Rate 78 82 104 H Respiratory Rate 14 Blood Pressure Pulse Oximetry 98 03/18/18 10:00 03/18/18 11:00 03/18/18 12:00 Temperature 97.9 F Pulse Rate 88 76 90 Respiratory Rate 18 Blood Pressure 128/72 Pulse Oximetry 96 03/18/18 13:00 03/18/18 14:00 03/18/18 15:00 Temperature 97.8 F Pulse Rate 112 H 78 87 Respiratory Rate 18 Blood Pressure 127/73 Pulse Oximetry 96 03/18/18 16:00 Temperature Pulse Rate 92 H Respiratory Rate Blood Pressure Pulse Oximetry Intake & Output 03/17/18 03/18/18 03/18/18 18:59 06:59 18:59 Intake Total 2350 / 2350 480 / 480 100 / 100 Output Total 2100 / 2100 900 / 900 Balance 250 / 250 -420 / -420 100 / 100 Weight 43.5 kg Intake: IV 1600 / 1600 100 / 100 NS Inj 1,000 ML @ 125 mls/hr IV 1500 / 1500 .CONT .Q8H [facility] Rx#:[id number] INVanz Inj 1,000 MG In NS Inj 100 / 100 100 / 100 100 ML @ 200 mls/hr IV.SIG Q24H [facility] Rx#:[id number] Oral 750 / 750 480 / 480 Output: Urine 2100 / 2100 900 / 900 Stool 0 / 0 Other: Post Void Residual 7 Date of Last Bowel Movement 03/17/18 03/17/18 03/17/18 # Bowel Movements 1 Narrative: GENERAL: AAOx3, no acute distress, generally weak SKIN: Warm and dry. No rashes HEAD: Atruamtic, normocephalic. EYES: No scleral icterus. No injection or drainage. ENT: Moist mucous membranes, patent nares, no erythema of oropharynx. NECK: Supple, trachea midline. No JVD or lymphadenopathy. Normal thyroid. CARDIOVASCULAR: Regular rate and rhythm. No murmurs, gallops, or rubs. RESPIRATORY: Scattered congestive sounds bilaterally. No wheezing. No accessory muscle use. GASTROINTESTINAL: Abdomen soft, non-tender, nondistended, normal active bowel sounds MUSCULOSKELETAL: No cyanosis, or edema. NEURO: CN II-XII grossly intact, no focal deficits, no slurring of speech Results - Labs CBC & Chem 7: 03/18/18 05:15 03/18/18 05:15 Laboratory Results - last 24 hr 03/18/18 03/18/18 05:15 05:15 WBC 12.2 H RBC 4.14 Hgb 12.8 Hct 37.7 MCV 91.0 MCH 30.8 MCHC 33.8 RDW 14.0 Plt Count 89 L MPV 9.1 Sodium 142 Potassium 3.7 Chloride 105 Carbon Dioxide 31.7 Anion Gap 5 BUN 15 Creatinine 0.86 Estimated GFR 64 L Random Glucose 95 D Calcium 7.7 L Assessment and Plan - Plan Supraventricular tachycardia Required 3 doses of adenosine in the emergency department. Converted on diltiazem drip. Continue extended release oral Cardizem Heart rate has been stable, plan for discharge tomorrow Chronic bronchitis with resistant organism Continuing ertapenem, continue after discharge Elevated d-dimer There is no pulmonary embolism on the CT. We will stop the heparin drip. Pelvic pain nondisplaced left pubic rami fx; ortho recommending conservative management Patient would feel safer at rehab center, plan for discharge to rehab tomorrow Discharge planning Discharge to rehab tomorrow morning once patient selects rehab
[2018-03-18] MEDS: dilTIAZem CD 180 MG Capsule PO SCH (21:07)
[2018-03-19 05:30] LABS: Hematocrit 37.8 % (35.0-46.0); Hemoglobin 12.8 gm/dL (11.6-15.3); Mean Corpuscular HGB Conc 33.9 % (32.0-36.0); Mean Corpuscular Hemoglobin 30.8 pg (27.0-34.0); Mean Corpuscular Volume 90.7 fL (80.0-100.0); Mean Platelet Volume 9.4 fL (7.0-11.0); Platelet Count 90 th/mm3 (150-450); Red Blood Count 4.17 mil/mm3 (4.00-5.30); Red Cell Distribution Width 13.8 % (11.6-17.2)
[2018-03-19 05:51] LABS: Calcium 8.4 mg/dL (8.5-10.1); Carbon Dioxide 31.1 meq/L (21.0-32.0); Potassium 3.7 meq/L (3.5-5.1)
[2018-03-19] MEDS: guaiFENesin 600 MG ER Tablet PO SCH ×2 (09:10→20:13)
[2018-03-19] MEDS: Heparin - SQ 10,000 UNITS/ML Vial SQ SCH (09:10)
--- NOTE | 2018-03-19 12:45 | P.DS ---
Date of admission: 03/15/18 21:55 Primary care physician: Julio Elliott Brief History from admission: 77-year-old female with a history of bronchitis, recent placement of PICC line 3 days ago on treatment with Invanz, as well as a history of SVT who presents status post mechanical fall (tripped in her kitchen ) with injury to left hip. She says she is unable to support her weight on left hip. Hip x-ray negative for fracture. During her stay in the ER, patient found to have SVT with heart rate up to the 160s. This is improved with IV diltiazem now back in sinus rhythm. Patient reports feeling lightheaded and short of breath in the ER while heart rate was in the 160s. She says that shortness of breath has resolved. She says she has been feeling all right over the past few days. Says that bronchitis as much improved. Patient denies any chest pain. DS: Medications - Discharge Medications Prescriptions: diltiazem HCl [Cardizem CD] 180 mg PO HS #30 cap ertapenem [Invanz] 1 g IV DAILY 30 Days #30 dose DS: Summary Hospital Course: 77-year-old female with a history of bronchiectasis and poly-resistant upper respiratory infection presented to the ER following a fall on 03/16/2018. X-ray workup revealed a pubic ramus fracture. She was kept for observation but her heart rate remained in the 160s and she became lightheaded. She required IV diltiazem to bring this under control. Her p.o. diltiazem was previously 120 mg of extended release daily but this was increased to 180 mg daily and has managed her SVT well. She has not been over 110 bpm in the last 24 hours and mostly remains in the 70s today. She feels that her balance is not safe for discharge home and is requesting to go to rehab for the next 1-2 weeks to help build back her strength. I agree with her plan. I have printed up to medications which she is on including the Cardizem new dose at 180 mg nightly. She has been on Invanz for her complex upper respiratory infection 1 g IV daily , I am continuing this and can write up to 30 days but will interview her about how long this outpatient treatment was supposed to occur. She is stable for discharge today when rehab bed is available. - Time Spent with Patient Total time spent providing and/or coordinating discharge services: Less than 30 minutes Exam Vital signs: Vital Signs 03/18/18 13:00 03/18/18 14:00 03/18/18 15:00 Temperature 97.8 F Pulse Rate 112 H 78 87 Respiratory Rate 18 Blood Pressure 127/73 Pulse Oximetry 96 03/18/18 16:00 03/18/18 17:00 03/18/18 19:00 Temperature 97.9 F Pulse Rate 92 H 97 H 99 H Respiratory Rate 18 Blood Pressure 119/62 Pulse Oximetry 92 L 03/18/18 20:00 03/18/18 21:00 03/18/18 22:00 Temperature Pulse Rate 99 H 98 H 99 H Respiratory Rate Blood Pressure Pulse Oximetry 03/18/18 23:00 03/19/18 00:00 03/19/18 01:00 Temperature 98.2 F Pulse Rate 85 85 84 Respiratory Rate 18 Blood Pressure 138/73 Pulse Oximetry 95 03/19/18 02:00 03/19/18 03:00 03/19/18 04:00 Temperature 98.1 F Pulse Rate 86 71 71 Respiratory Rate 20 Blood Pressure 120/59 L Pulse Oximetry 95 03/19/18 05:00 03/19/18 05:56 03/19/18 07:00 Temperature 98.2 F Pulse Rate 84 92 H 77 Respiratory Rate 18 Blood Pressure 130/64 Pulse Oximetry 95 03/19/18 08:00 03/19/18 09:00 03/19/18 09:10 Temperature Pulse Rate 83 82 Respiratory Rate Blood Pressure Pulse Oximetry 97 03/19/18 10:00 03/19/18 11:00 03/19/18 12:00 Temperature 98.2 F Pulse Rate 80 87 79 Respiratory Rate 18 Blood Pressure 115/59 L Pulse Oximetry 95 Intake & Output 03/18/18 03/19/18 03/19/18 18:59 06:59 18:59 Intake Total 840 / 840 480 / 480 100 / 100 Output Total 500 / 500 700 / 700 Balance 340 / 340 -220 / -220 100 / 100 Weight 43.7 kg Intake: IV 100 / 100 100 / 100 INVanz Inj 1,000 MG In NS Inj 100 / 100 100 / 100 100 ML @ 200 mls/hr IV.SIG Q24H [facility] Rx#:[id number] Oral 740 / 740 480 / 480 Output: Urine 500 / 500 700 / 700 Urine/Stool Mix 0 / 0 Other: Date of Last Bowel Movement 03/17/18 Results Procedures completed during hospitalization: none Labs on day of discharge: Labs from last 24 hours 03/19/18 03/19/18 05:10 05:10 WBC 10.0 RBC 4.17 Hgb 12.8 Hct 37.8 MCV 90.7 MCH 30.8 MCHC 33.9 RDW 13.8 Plt Count 90 L MPV 9.4 Sodium 140 Potassium 3.7 Chloride 102 Carbon Dioxide 31.1 Anion Gap 7 BUN 17 Creatinine 0.87 Estimated GFR 63 L Random Glucose 94 Calcium 8.4 L - Impressions ITS Impressions Hip X-Ray 03/15/18 18:13 CONCLUSION: No fracture seen. Pelvis CT 03/15/18 19:11 CONCLUSION: 1. Mildly comminuted nondisplaced fractures of the left inferior pubic ramus. Chest CTA 03/16/18 00:00 CONCLUSION: 1. No pulmonary embolus. 2. Bronchiectasis and patchy, presumably infectious or inflammatory infiltrate of both bases. 3. Tiny bilateral pleural effusions. 4. 7 mm nodules in the right lower and upper lobes and a few scattered sub-4 mm bilateral pulmonary nodules. Six-month follow-up noncontrast chest CT is Coronary artery calcification. Chest X-Ray 03/17/18 00:00 CONCLUSION: Hyperinflated lungs with suspected interstitial disease at the bases. Discharge Plan - Discharge Disposition Patient Disposition: Discharge to SNF - Discharge Condition Condition: Stable - Discharge Order Discharge Orders: Discharge Order (Routine); Ordered 03/19/18 Ordered By: Alejandro Bradley - Discharge Details Discharge Comment: To [facility] by patient if available as an option - Physicians Team Attending Provider: Alejandro Bradley Other Providers: Julio Hagan MD ; Mitul Will MD ; Zhao Dyer MD ; Milagros Tse MD
--- NOTE | 2018-03-19 14:50 | P.PNCA ---
Subjective Interval history: alert in nad Medications and Allergies Active Medications: Active Medications Al Hydroxide/Mg Hydroxide (Milk Of Magnesia Liq) 30 ml PO Q12H PRN PRN Reason: Mild Constipation Albuterol (Duoneb Neb (Joanne)) 1 ampul NEB Q8HR NEB [facility] Last Admin: 03/19/18 07:25 Dose: Not Given Bisacodyl (Dulcolax Supp) 10 mg RECTAL DAILY PRN PRN Reason: SEVERE CONSITIPATION Diltiazem HCl (Cardizem Cd 24hr) 180 mg PO HS [facility] Last Admin: 03/18/18 21:07 Dose: 180 mg Guaifenesin (Mucinex Er) 600 mg PO BID [facility] Last Admin: 03/19/18 09:10 Dose: 600 mg Heparin Sodium (Porcine) (Heparin Inj) 5,000 units SQ Q12HR [facility] Last Admin: 03/19/18 09:10 Dose: 5,000 units Diltiazem HCl 125 mg/ Sodium (Chloride) 125 mls @ 5 mls/hr IV.CONT TITRATE PRN ; Protocol PRN Reason: Per Protocol Last Titration: 03/16/18 15:30 Dose: 0 mg/hr, 0 mls/hr Ertapenem 1,000 mg/ Sodium (Chloride) 100 mls @ 200 mls/hr IV.SIG Q24H [facility] Last Infusion: 03/19/18 09:40 Dose: Infused Lactulose (Lactulose Liq) 30 ml PO DAILY PRN PRN Reason: SEVERE CONSITIPATION Sennosides (Senokot) 17.2 mg PO Q12H PRN PRN Reason: Moderate Constipation Allergies Allergy/AdvReac Type Severity Reaction Status Date / Time sulfamethoxazole Allergy Tachycardia Verified 03/15/18 18:58 [From Bactrim] trimethoprim [From Bactrim] Allergy Tachycardia Verified 03/15/18 18:58 *MDRO Multi-Drug Resistant AdvReac Unknown n/a Uncoded 03/15/18 13:02 Organism Home Medications Medication Instructions Recorded Confirmed Type diltiazem HCl 120 mg PO HS 01/15/18 03/15/18 History Physical Exam Vital signs: Vital Signs 03/18/18 15:00 03/18/18 16:00 03/18/18 17:00 Temperature 97.8 F Pulse Rate 87 92 H 97 H Respiratory Rate 18 Blood Pressure 127/73 Pulse Oximetry 96 Pulse Oximetry [Exertion on Room Air] Pulse Oximetry [Exertion with Oxygen] Pulse Oximetry [Resting on Room Air] Pulse Oximetry [Resting with Oxygen] 03/18/18 19:00 03/18/18 20:00 03/18/18 21:00 Temperature 97.9 F Pulse Rate 99 H 99 H 98 H Respiratory Rate 18 Blood Pressure 119/62 Pulse Oximetry 92 L Pulse Oximetry [Exertion on Room Air] Pulse Oximetry [Exertion with Oxygen] Pulse Oximetry [Resting on Room Air] Pulse Oximetry [Resting with Oxygen] 03/18/18 22:00 03/18/18 23:00 03/19/18 00:00 Temperature 98.2 F Pulse Rate 99 H 85 85 Respiratory Rate 18 Blood Pressure 138/73 Pulse Oximetry 95 Pulse Oximetry [Exertion on Room Air] Pulse Oximetry [Exertion with Oxygen] Pulse Oximetry [Resting on Room Air] Pulse Oximetry [Resting with Oxygen] 03/19/18 01:00 03/19/18 02:00 03/19/18 03:00 Temperature 98.1 F Pulse Rate 84 86 71 Respiratory Rate 20 Blood Pressure 120/59 L Pulse Oximetry 95 Pulse Oximetry [Exertion on Room Air] Pulse Oximetry [Exertion with Oxygen] Pulse Oximetry [Resting on Room Air] Pulse Oximetry [Resting with Oxygen] 03/19/18 04:00 03/19/18 05:00 03/19/18 05:56 Temperature Pulse Rate 71 84 92 H Respiratory Rate Blood Pressure Pulse Oximetry Pulse Oximetry [Exertion on Room Air] Pulse Oximetry [Exertion with Oxygen] Pulse Oximetry [Resting on Room Air] Pulse Oximetry [Resting with Oxygen] 03/19/18 07:00 03/19/18 08:00 03/19/18 09:00 Temperature 98.2 F Pulse Rate 77 83 82 Respiratory Rate 18 Blood Pressure 130/64 Pulse Oximetry 95 Pulse Oximetry [Exertion on Room Air] Pulse Oximetry [Exertion with Oxygen] Pulse Oximetry [Resting on Room Air] Pulse Oximetry [Resting with Oxygen] 03/19/18 09:10 03/19/18 10:00 03/19/18 11:00 Temperature 98.2 F Pulse Rate 80 87 Respiratory Rate 18 Blood Pressure 115/59 L Pulse Oximetry 97 95 Pulse Oximetry [Exertion on Room Air] Pulse Oximetry [Exertion with Oxygen] Pulse Oximetry [Resting on Room Air] Pulse Oximetry [Resting with Oxygen] 03/19/18 12:00 03/19/18 12:51 03/19/18 13:00 Temperature Pulse Rate 79 84 Respiratory Rate Blood Pressure Pulse Oximetry Pulse Oximetry [Exertion on Room Air] 88 L Pulse Oximetry [Exertion with Oxygen] 94 L Pulse Oximetry [Resting on Room Air] 91 L Pulse Oximetry [Resting with Oxygen] 96 03/19/18 14:00 Temperature Pulse Rate 93 H Respiratory Rate Blood Pressure Pulse Oximetry Pulse Oximetry [Exertion on Room Air] Pulse Oximetry [Exertion with Oxygen] Pulse Oximetry [Resting on Room Air] Pulse Oximetry [Resting with Oxygen] Intake & Output 03/18/18 03/19/18 03/19/18 18:59 06:59 18:59 Intake Total 840 / 840 480 / 480 100 / 100 Output Total 500 / 500 700 / 700 Balance 340 / 340 -220 / -220 100 / 100 Weight 43.7 kg Intake: IV 100 / 100 100 / 100 INVanz Inj 1,000 MG In NS Inj 100 / 100 100 / 100 100 ML @ 200 mls/hr IV.SIG Q24H [facility] Rx#:[id number] Oral 740 / 740 480 / 480 Output: Urine 500 / 500 700 / 700 Urine/Stool Mix 0 / 0 Other: Date of Last Bowel Movement 03/17/18 Results 03/19/18 05:10 03/19/18 05:10 CBC 03/18/18 03/19/18 Range/Units 05:15 05:10 WBC 12.2 H 10.0 (4.0-11.0) th/mm3 RBC 4.14 4.17 (4.00-5.30) mil/mm3 Hgb 12.8 12.8 (11.6-15.3) gm/dL Hct 37.7 37.8 (35.0-46.0) % Plt Count 89 L 90 L (150-450) th/mm3 Comprehensive Metabolic Panel 03/18/18 03/19/18 Range/Units 05:15 05:10 Sodium 142 140 (136-145) meq/L Potassium 3.7 3.7 (3.5-5.1) meq/L Chloride 105 102 (98-107) meq/L Carbon Dioxide 31.7 31.1 (21.0-32.0) meq/L BUN 15 17 (7-18) mg/dL Creatinine 0.86 0.87 (0.50-1.00) mg/dL Calcium 7.7 L 8.4 L (8.5-10.1) mg/dL Intake and Output 03/18/18 03/19/18 03/19/18 22:59 06:59 14:59 Intake Total 740 / 740 480 / 480 100 / 100 Output Total 500 / 500 700 / 700 Balance 240 / 240 -220 / -220 100 / 100 Intake: IV 100 / 100 INVanz Inj 1,000 MG In NS Inj 100 / 100 100 ML @ 200 mls/hr IV.SIG Q24H [facility] Rx#:[id number] Oral 740 / 740 480 / 480 Output: Urine 500 / 500 700 / 700 Urine/Stool Mix 0 / 0 Other: Date of Last Bowel Movement 03/17/18 Weight 43.7 kg Assessment and Plan - Assessment (1) SVT (supraventricular tachycardia) Code(s): I47.1 - Supraventricular tachycardia Status: Acute (2) Acute hip pain Code(s): M25.559 - Pain in unspecified hip Status: Acute (3) Inferior pubic ramus fracture Code(s): S32.599A - Other specified fracture of unspecified pubis, initial encounter for closed fracture Status: Acute (4) History of bronchoscopy Code(s): Z98.890 - Other specified postprocedural states Status: Acute (5) SVT (supraventricular tachycardia) Code(s): I47.1 - Supraventricular tachycardia Status: Acute - Plan 1.) SVT - no further events events on cardizem cd 180 mg qd, d/w patient, advised her to f/u with me in the office [place]
--- NOTE | 2018-03-19 16:52 | P.PNID ---
Subjective Remarks: doing much better pt was switced from Primaxin to ertapenem ambulating and getting ready to go to [place] Antibiotics: ertapenem Past Medical History: bronchoectatis dz MAC pulmonary Allergies/Adverse Reactions: Allergies sulfamethoxazole [From Bactrim] Allergy (Verified 03/15/18 18:58) Tachycardia trimethoprim [From Bactrim] Allergy (Verified 03/15/18 18:58) Tachycardia *MDRO Multi-Drug Resistant Organism Adverse Reaction (Unknown, Uncoded 03/15/18 13:02) n/a MDRO Achromobacter XYL/DENT (Bronch) 01/02/17 Objective Vital Signs 03/18/18 17:00 03/18/18 19:00 03/18/18 20:00 Temperature 97.9 F Pulse Rate 97 H 99 H 99 H Respiratory Rate 18 Blood Pressure 119/62 Pulse Oximetry 92 L Pulse Oximetry [Exertion on Room Air] Pulse Oximetry [Exertion with Oxygen] Pulse Oximetry [Resting on Room Air] Pulse Oximetry [Resting with Oxygen] 03/18/18 21:00 03/18/18 22:00 03/18/18 23:00 Temperature 98.2 F Pulse Rate 98 H 99 H 85 Respiratory Rate 18 Blood Pressure 138/73 Pulse Oximetry 95 Pulse Oximetry [Exertion on Room Air] Pulse Oximetry [Exertion with Oxygen] Pulse Oximetry [Resting on Room Air] Pulse Oximetry [Resting with Oxygen] 03/19/18 00:00 03/19/18 01:00 03/19/18 02:00 Temperature Pulse Rate 85 84 86 Respiratory Rate Blood Pressure Pulse Oximetry Pulse Oximetry [Exertion on Room Air] Pulse Oximetry [Exertion with Oxygen] Pulse Oximetry [Resting on Room Air] Pulse Oximetry [Resting with Oxygen] 03/19/18 03:00 03/19/18 04:00 03/19/18 05:00 Temperature 98.1 F Pulse Rate 71 71 84 Respiratory Rate 20 Blood Pressure 120/59 L Pulse Oximetry 95 Pulse Oximetry [Exertion on Room Air] Pulse Oximetry [Exertion with Oxygen] Pulse Oximetry [Resting on Room Air] Pulse Oximetry [Resting with Oxygen] 03/19/18 05:56 03/19/18 07:00 03/19/18 08:00 Temperature 98.2 F Pulse Rate 92 H 77 83 Respiratory Rate 18 Blood Pressure 130/64 Pulse Oximetry 95 Pulse Oximetry [Exertion on Room Air] Pulse Oximetry [Exertion with Oxygen] Pulse Oximetry [Resting on Room Air] Pulse Oximetry [Resting with Oxygen] 03/19/18 09:00 03/19/18 09:10 03/19/18 10:00 Temperature Pulse Rate 82 80 Respiratory Rate Blood Pressure Pulse Oximetry 97 Pulse Oximetry [Exertion on Room Air] Pulse Oximetry [Exertion with Oxygen] Pulse Oximetry [Resting on Room Air] Pulse Oximetry [Resting with Oxygen] 03/19/18 11:00 03/19/18 12:00 03/19/18 12:51 Temperature 98.2 F Pulse Rate 87 79 Respiratory Rate 18 Blood Pressure 115/59 L Pulse Oximetry 95 Pulse Oximetry [Exertion on Room Air] 88 L Pulse Oximetry [Exertion with Oxygen] 94 L Pulse Oximetry [Resting on Room Air] 91 L Pulse Oximetry [Resting with Oxygen] 96 03/19/18 13:00 03/19/18 14:00 03/19/18 15:00 Temperature 97.6 F Pulse Rate 84 93 H 98 H Respiratory Rate 18 Blood Pressure 116/68 Pulse Oximetry 93 L Pulse Oximetry [Exertion on Room Air] Pulse Oximetry [Exertion with Oxygen] Pulse Oximetry [Resting on Room Air] Pulse Oximetry [Resting with Oxygen] 03/19/18 16:00 Temperature Pulse Rate 89 Respiratory Rate Blood Pressure Pulse Oximetry Pulse Oximetry [Exertion on Room Air] Pulse Oximetry [Exertion with Oxygen] Pulse Oximetry [Resting on Room Air] Pulse Oximetry [Resting with Oxygen] Intake & Output 03/18/18 03/19/18 03/19/18 18:59 06:59 18:59 Intake Total 840 / 840 480 / 480 100 / 100 Output Total 500 / 500 700 / 700 Balance 340 / 340 -220 / -220 100 / 100 Weight 43.7 kg Intake: IV 100 / 100 100 / 100 INVanz Inj 1,000 MG In NS Inj 100 / 100 100 / 100 100 ML @ 200 mls/hr IV.SIG Q24H [facility] Rx#:[id number] Oral 740 / 740 480 / 480 Output: Urine 500 / 500 700 / 700 Urine/Stool Mix 0 / 0 Other: Date of Last Bowel Movement 03/17/18 Lab - Hematology Results 03/18/18 03/19/18 05:15 05:10 WBC 12.2 H 10.0 RBC 4.14 4.17 Hgb 12.8 12.8 Hct 37.7 37.8 MCV 91.0 90.7 MCH 30.8 30.8 MCHC 33.8 33.9 RDW 14.0 13.8 Plt Count 89 L 90 L MPV 9.1 9.4 Lab - Chemistry Results 03/18/18 03/19/18 05:15 05:10 Sodium 142 140 Potassium 3.7 3.7 Chloride 105 102 Carbon Dioxide 31.7 31.1 Anion Gap 5 7 BUN 15 17 Creatinine 0.86 0.87 Estimated GFR 64 L 63 L Random Glucose 95 D 94 Calcium 7.7 L 8.4 L Imaging: ITS Impressions Hip X-Ray 03/15/18 18:13 CONCLUSION: No fracture seen. Pelvis CT 03/15/18 19:11 CONCLUSION: 1. Mildly comminuted nondisplaced fractures of the left inferior pubic ramus. Chest CTA 03/16/18 00:00 CONCLUSION: 1. No pulmonary embolus. 2. Bronchiectasis and patchy, presumably infectious or inflammatory infiltrate of both bases. 3. Tiny bilateral pleural effusions. 4. 7 mm nodules in the right lower and upper lobes and a few scattered sub-4 mm bilateral pulmonary nodules. Six-month follow-up noncontrast chest CT is Coronary artery calcification. Chest X-Ray 03/17/18 00:00 CONCLUSION: Hyperinflated lungs with suspected interstitial disease at the bases. Physical Exam: GENERAL: NAD SKIN: Warm and dry. NO rash HEAD: Atraumatic. Normocephalic. EYES: Pupils equal and round. No scleral icterus. No injection or drainage. ENT: No nasal bleeding or discharge. Mucous membranes pink and moist. NECK: Trachea midline. No JVD. CARDIOVASCULAR: Regular rate and rhythm. No murmurs RESPIRATORY: No accessory muscle use. few rhonchi to auscultation. Breath sounds equal bilaterally. GASTROINTESTINAL: Abdomen soft, non-tender, nondistended. Hepatic and splenic margins not palpable. MUSCULOSKELETAL: Extremities without clubbing, cyanosis, or edema. No obvious deformities. NEUROLOGICAL: Awake and alert. No obvious cranial nerve deficits. Motor grossly within normal limits. Five out of 5 muscle strength in the arms and legs. Normal speech. PSYCHIATRIC: Appropriate mood and affect; insight and judgment normal. Assessment and Plan - Plan Achromobacter PNA recently not expectorating Chropnic bronchoectatic disease H/o LÓPEZ pelvic fracture - complete 1 more week of Ertapenem repeat sputum, including AFB. NO need for TB isolation, TB not suspected OK to dc to [facility] with Dr Mireles upon dc
--- NOTE | 2018-03-19 16:58 | P.DCO ---
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 [] May leave port accessed during therapy. [] May leave peripheral site accessed for duration of therapy. [x] If patient has SOB or respiratory distress, check oxygen saturation. If less than 90% or clinical signs of respiratory distress, administer oxygen at 2 L/min. via nasal cannula and notify physician. [x] Anaphylaxis/Reaction orders: * Stop infusion. * Keep IV line open with saline flush. * Notify physician. * Monitor vital signs every 15 minutes until symptoms resolve. * Check Oxygen saturation; Oxygen at 2 L/min. via nasal cannula if less than 90% or clinical signs of respiratory distress. * Administer diphenhydramine (Benadryl) 25 mg IV STAT, (unless patient has received as pre-med). May repeat once, if necessary. * Solu-Cortef 250 mg IVP over 30-60 seconds, use 100 mg vials for each dissolution. * Epinephrine (1mg/1 ml) 0.3 mg subcutaneously or IVP now with any signs of respiratory distress. * Check with physician for new additional pre-med orders if patient is re- challenged or re-treated. [x] May remove PICC line when treatment complete, after confirming with Physician. [x] If the patient is admitted to the hospital, the ED, or transferred via [facility] , complete transfer form including medication reconciliation order sheet. Weekly Labs: CBC w/diff, Creatinine Allergies sulfamethoxazole [From Bactrim] Allergy (Verified 03/15/18 18:58) Tachycardia trimethoprim [From Bactrim] Allergy (Verified 03/15/18 18:58) Tachycardia *MDRO Multi-Drug Resistant Organism Adverse Reaction (Unknown, Uncoded 03/15/18 13:02) n/a MDRO Achromobacter XYL/DENT (Bronch) 01/02/17
--- NOTE | 2018-03-19 18:40 | P.PN ---
Subjective Interval history: Doing well. No fever. On therapy for Achromobacter Pneumonia. tolerates IV infusion of antibiotics. Off O2 sat 96 Physical Exam Vital signs: Vital Signs 03/18/18 19:00 03/18/18 20:00 03/18/18 21:00 Temperature 97.9 F Pulse Rate 99 H 99 H 98 H Respiratory Rate 18 Blood Pressure 119/62 Pulse Oximetry 92 L Pulse Oximetry [Exertion on Room Air] Pulse Oximetry [Exertion with Oxygen] Pulse Oximetry [Resting on Room Air] Pulse Oximetry [Resting with Oxygen] 03/18/18 22:00 03/18/18 23:00 03/19/18 00:00 Temperature 98.2 F Pulse Rate 99 H 85 85 Respiratory Rate 18 Blood Pressure 138/73 Pulse Oximetry 95 Pulse Oximetry [Exertion on Room Air] Pulse Oximetry [Exertion with Oxygen] Pulse Oximetry [Resting on Room Air] Pulse Oximetry [Resting with Oxygen] 03/19/18 01:00 03/19/18 02:00 03/19/18 03:00 Temperature 98.1 F Pulse Rate 84 86 71 Respiratory Rate 20 Blood Pressure 120/59 L Pulse Oximetry 95 Pulse Oximetry [Exertion on Room Air] Pulse Oximetry [Exertion with Oxygen] Pulse Oximetry [Resting on Room Air] Pulse Oximetry [Resting with Oxygen] 03/19/18 04:00 03/19/18 05:00 03/19/18 05:56 Temperature Pulse Rate 71 84 92 H Respiratory Rate Blood Pressure Pulse Oximetry Pulse Oximetry [Exertion on Room Air] Pulse Oximetry [Exertion with Oxygen] Pulse Oximetry [Resting on Room Air] Pulse Oximetry [Resting with Oxygen] 03/19/18 07:00 03/19/18 08:00 03/19/18 09:00 Temperature 98.2 F Pulse Rate 77 83 82 Respiratory Rate 18 Blood Pressure 130/64 Pulse Oximetry 95 Pulse Oximetry [Exertion on Room Air] Pulse Oximetry [Exertion with Oxygen] Pulse Oximetry [Resting on Room Air] Pulse Oximetry [Resting with Oxygen] 03/19/18 09:10 03/19/18 10:00 03/19/18 11:00 Temperature 98.2 F Pulse Rate 80 87 Respiratory Rate 18 Blood Pressure 115/59 L Pulse Oximetry 97 95 Pulse Oximetry [Exertion on Room Air] Pulse Oximetry [Exertion with Oxygen] Pulse Oximetry [Resting on Room Air] Pulse Oximetry [Resting with Oxygen] 03/19/18 12:00 03/19/18 12:51 03/19/18 13:00 Temperature Pulse Rate 79 84 Respiratory Rate Blood Pressure Pulse Oximetry Pulse Oximetry [Exertion on Room Air] 88 L Pulse Oximetry [Exertion with Oxygen] 94 L Pulse Oximetry [Resting on Room Air] 91 L Pulse Oximetry [Resting with Oxygen] 96 03/19/18 14:00 03/19/18 15:00 03/19/18 16:00 Temperature 97.6 F Pulse Rate 93 H 98 H 89 Respiratory Rate 18 Blood Pressure 116/68 Pulse Oximetry 93 L Pulse Oximetry [Exertion on Room Air] Pulse Oximetry [Exertion with Oxygen] Pulse Oximetry [Resting on Room Air] Pulse Oximetry [Resting with Oxygen] 03/19/18 17:00 03/19/18 18:00 Temperature Pulse Rate 100 H 96 H Respiratory Rate Blood Pressure Pulse Oximetry Pulse Oximetry [Exertion on Room Air] Pulse Oximetry [Exertion with Oxygen] Pulse Oximetry [Resting on Room Air] Pulse Oximetry [Resting with Oxygen] Intake & Output 03/18/18 03/19/18 03/19/18 18:59 06:59 18:59 Intake Total 840 / 840 480 / 480 740 / 740 Output Total 500 / 500 700 / 700 900 / 900 Balance 340 / 340 -220 / -220 -160 / -160 Weight 43.7 kg 43.7 kg Intake: IV 100 / 100 100 / 100 INVanz Inj 1,000 MG In NS Inj 100 / 100 100 / 100 100 ML @ 200 mls/hr IV.SIG Q24H [facility] Rx#:[id number] Oral 740 / 740 480 / 480 640 / 640 Output: Urine 500 / 500 700 / 700 900 / 900 Urine/Stool Mix 0 / 0 Other: Date of Last Bowel Movement 03/17/18 03/19/18 # Bowel Movements 1 Narrative: GENERAL: AAOx3, no acute distress and on O2 SKIN: Warm and dry. No rashes HEAD: Atraumatic, normocephalic. EYES: No scleral icterus. No injection or drainage. ENT: Moist mucous membranes, patent nares, no erythema of oropharynx. NECK: Supple, trachea midline. No JVD or lymphadenopathy. Normal thyroid. CARDIOVASCULAR: Regular rate and rhythm. No murmurs, gallops, or rubs. RESPIRATORY: Scattered wheezes bilaterally. No accessory muscle use. GASTROINTESTINAL: Abdomen soft, non-tender, nondistended, normal active bowel sounds MUSCULOSKELETAL: No cyanosis, or edema. NEURO: has no focal deficits, no slurring of speech Results - Labs CBC & Chem 7: 03/19/18 05:10 03/19/18 05:10 Laboratory Results - last 24 hr 03/19/18 03/19/18 05:10 05:10 WBC 10.0 RBC 4.17 Hgb 12.8 Hct 37.8 MCV 90.7 MCH 30.8 MCHC 33.9 RDW 13.8 Plt Count 90 L MPV 9.4 Sodium 140 Potassium 3.7 Chloride 102 Carbon Dioxide 31.1 Anion Gap 7 BUN 17 Creatinine 0.87 Estimated GFR 63 L Random Glucose 94 Calcium 8.4 L - Procedures none Assessment and Plan - Assessment (1) Bronchiectasis Code(s): J47.9 - Bronchiectasis, uncomplicated Status: Acute (2) COPD (chronic obstructive pulmonary disease) Code(s): J44.9 - Chronic obstructive pulmonary disease, unspecified Status: Acute (3) Pneumonia Code(s): J18.9 - Pneumonia, unspecified organism Status: Acute (4) Physical deconditioning Code(s): R53.81 - Other malaise Status: Acute (5) Anemia Code(s): D64.9 - Anemia, unspecified Status: Acute (6) SVT (supraventricular tachycardia) Code(s): I47.1 - Supraventricular tachycardia Status: Acute (7) Acute hip pain Code(s): M25.559 - Pain in unspecified hip Status: Acute (8) History of facelift Code(s): Z98.890 - Other specified postprocedural states Status: Acute (9) SVT (supraventricular tachycardia) Code(s): I47.1 - Supraventricular tachycardia Status: Acute - Plan 1. Cont antibiotics Ertapenem per ID 2. O2 2l PRN 3. Duoneb nebs qid. 4. CBC, BMP in am 5. Will get F/U CT chest in 6 weeks. 6. Postural drainage qid.
[2018-03-19] MEDS: dilTIAZem CD 180 MG Capsule PO SCH (20:13)
[2018-03-20 03:13] VITALS: RESP 18
[2018-03-20 06:46] LABS: Hematocrit 36.5 % (35.0-46.0); Hemoglobin 12.2 gm/dL (11.6-15.3); Mean Corpuscular HGB Conc 33.5 % (32.0-36.0); Mean Corpuscular Hemoglobin 30.5 pg (27.0-34.0); Mean Corpuscular Volume 91.2 fL (80.0-100.0); Mean Platelet Volume 9.5 fL (7.0-11.0); Platelet Count 93 th/mm3 (150-450); Red Cell Distribution Width 13.4 % (11.6-17.2); White Blood Count 8.1 th/mm3 (4.0-11.0)
[2018-03-20 07:22] LABS: Calcium 7.7 mg/dL (8.5-10.1); Carbon Dioxide 31.7 meq/L (21.0-32.0); Potassium 3.6 meq/L (3.5-5.1)
[2018-03-20] MEDS: guaiFENesin 600 MG ER Tablet PO SCH (08:21)
--- NOTE | 2018-03-20 12:30 | P.PN ---
Subjective Interval history: She is feeling better. On IV Invanz. No fever. [facility]. Physical Exam Vital signs: Vital Signs 03/19/18 12:51 03/19/18 13:00 03/19/18 14:00 Temperature Pulse Rate 84 93 H Respiratory Rate Blood Pressure Pulse Oximetry Pulse Oximetry [Exertion on Room Air] 88 L Pulse Oximetry [Exertion with Oxygen] 94 L Pulse Oximetry [Resting on Room Air] 91 L Pulse Oximetry [Resting with Oxygen] 96 03/19/18 15:00 03/19/18 16:00 03/19/18 17:00 Temperature 97.6 F Pulse Rate 98 H 89 100 H Respiratory Rate 18 Blood Pressure 116/68 Pulse Oximetry 93 L Pulse Oximetry [Exertion on Room Air] Pulse Oximetry [Exertion with Oxygen] Pulse Oximetry [Resting on Room Air] Pulse Oximetry [Resting with Oxygen] 03/19/18 18:00 03/19/18 19:00 03/19/18 20:00 Temperature 98.2 F Pulse Rate 96 H 100 H 96 H Respiratory Rate 20 Blood Pressure 133/73 Pulse Oximetry 95 Pulse Oximetry [Exertion on Room Air] Pulse Oximetry [Exertion with Oxygen] Pulse Oximetry [Resting on Room Air] Pulse Oximetry [Resting with Oxygen] 03/19/18 21:00 03/19/18 22:00 03/19/18 23:00 Temperature 98.0 F Pulse Rate 81 75 76 Respiratory Rate 20 Blood Pressure 135/70 Pulse Oximetry 97 Pulse Oximetry [Exertion on Room Air] Pulse Oximetry [Exertion with Oxygen] Pulse Oximetry [Resting on Room Air] Pulse Oximetry [Resting with Oxygen] 03/19/18 23:57 03/20/18 00:00 03/20/18 01:00 Temperature Pulse Rate 102 H 69 Respiratory Rate Blood Pressure Pulse Oximetry 97 Pulse Oximetry [Exertion on Room Air] Pulse Oximetry [Exertion with Oxygen] Pulse Oximetry [Resting on Room Air] Pulse Oximetry [Resting with Oxygen] 03/20/18 02:00 03/20/18 03:00 03/20/18 04:00 Temperature 97.8 F Pulse Rate 66 73 67 Respiratory Rate 18 Blood Pressure 113/58 L Pulse Oximetry 97 Pulse Oximetry [Exertion on Room Air] Pulse Oximetry [Exertion with Oxygen] Pulse Oximetry [Resting on Room Air] Pulse Oximetry [Resting with Oxygen] 03/20/18 05:00 03/20/18 05:53 03/20/18 07:00 Temperature Pulse Rate 91 H 66 67 Respiratory Rate Blood Pressure Pulse Oximetry Pulse Oximetry [Exertion on Room Air] Pulse Oximetry [Exertion with Oxygen] Pulse Oximetry [Resting on Room Air] Pulse Oximetry [Resting with Oxygen] 03/20/18 08:00 03/20/18 08:59 03/20/18 09:00 Temperature 97.6 F Pulse Rate 67 84 Respiratory Rate 18 Blood Pressure 113/55 L Pulse Oximetry 97 97 Pulse Oximetry [Exertion on Room Air] Pulse Oximetry [Exertion with Oxygen] Pulse Oximetry [Resting on Room Air] Pulse Oximetry [Resting with Oxygen] 03/20/18 10:00 03/20/18 11:00 Temperature Pulse Rate 77 72 Respiratory Rate Blood Pressure Pulse Oximetry Pulse Oximetry [Exertion on Room Air] Pulse Oximetry [Exertion with Oxygen] Pulse Oximetry [Resting on Room Air] Pulse Oximetry [Resting with Oxygen] Intake & Output 03/19/18 03/20/18 03/20/18 18:59 06:59 18:59 Intake Total 740 / 740 480 / 480 100 / 100 Output Total 900 / 900 700 / 700 Balance -160 / -160 -220 / -220 100 / 100 Weight 43.7 kg 46 kg Intake: IV 100 / 100 100 / 100 INVanz Inj 1,000 MG In NS Inj 100 / 100 100 / 100 100 ML @ 200 mls/hr IV.SIG Q24H [facility] Rx#:[id number] Oral 640 / 640 480 / 480 Output: Urine 900 / 900 700 / 700 Other: Date of Last Bowel Movement 03/19/18 03/20/18 # Bowel Movements 1 Narrative: GENERAL: Elderly thin W/F in no acute distress and on O2 SKIN: Warm and dry. No rashes HEAD: Atraumatic, normocephalic. EYES: No scleral icterus. No injection or drainage. ENT: Moist mucous membranes, patent nares, no erythema of oropharynx. NECK: Supple, trachea midline. No JVD or lymphadenopathy. Normal thyroid. CARDIOVASCULAR: Regular rate and rhythm. No murmurs, gallops, or rubs. RESPIRATORY: Scattered wheezes bilaterally. No accessory muscle use. GASTROINTESTINAL: Abdomen soft, non-tender, nondistended, normal active bowel sounds MUSCULOSKELETAL: No cyanosis, or edema. NEURO: has no focal deficits. Results - Labs CBC & Chem 7: 03/20/18 06:00 03/20/18 06:00 Laboratory Results - last 24 hr 03/20/18 03/20/18 06:00 06:00 WBC 8.1 RBC 4.00 Hgb 12.2 Hct 36.5 MCV 91.2 MCH 30.5 MCHC 33.5 RDW 13.4 Plt Count 93 L MPV 9.5 Sodium 143 Potassium 3.6 Chloride 103 Carbon Dioxide 31.7 Anion Gap 8 BUN 18 Creatinine 0.84 Estimated GFR 65 L Random Glucose 81 Calcium 7.7 L - Procedures none Assessment and Plan - Assessment (1) Bronchiectasis Code(s): J47.9 - Bronchiectasis, uncomplicated Status: Acute (2) COPD (chronic obstructive pulmonary disease) Code(s): J44.9 - Chronic obstructive pulmonary disease, unspecified Status: Acute (3) Pneumonia Code(s): J18.9 - Pneumonia, unspecified organism Status: Acute (4) Physical deconditioning Code(s): R53.81 - Other malaise Status: Acute (5) Anemia Code(s): D64.9 - Anemia, unspecified Status: Acute (6) SVT (supraventricular tachycardia) Code(s): I47.1 - Supraventricular tachycardia Status: Acute (7) Acute hip pain Code(s): M25.559 - Pain in unspecified hip Status: Acute (8) History of facelift Code(s): Z98.890 - Other specified postprocedural states Status: Acute (9) SVT (supraventricular tachycardia) Code(s): I47.1 - Supraventricular tachycardia Status: Acute - Plan 1. Cont antibiotics Ertapenem per ID 2. O2 2l PRN 3. D/C Duoneb 4. To rehab this week 5. Will get F/U CT chest in 6 weeks. 6. CPT ,Postural drainage qid.
--- NOTE | 2018-03-20 12:39 | P.PNIM ---
Subjective Interval history: Patient is feeling well today, I informed her that her lab work looks great. She has a discharge in place and is awaiting acceptance at a rehab center. Physical Exam Vital signs: Vital Signs 03/19/18 12:51 03/19/18 13:00 03/19/18 14:00 Temperature Pulse Rate 84 93 H Respiratory Rate Blood Pressure Pulse Oximetry Pulse Oximetry [Exertion on Room Air] 88 L Pulse Oximetry [Exertion with Oxygen] 94 L Pulse Oximetry [Resting on Room Air] 91 L Pulse Oximetry [Resting with Oxygen] 96 03/19/18 15:00 03/19/18 16:00 03/19/18 17:00 Temperature 97.6 F Pulse Rate 98 H 89 100 H Respiratory Rate 18 Blood Pressure 116/68 Pulse Oximetry 93 L Pulse Oximetry [Exertion on Room Air] Pulse Oximetry [Exertion with Oxygen] Pulse Oximetry [Resting on Room Air] Pulse Oximetry [Resting with Oxygen] 03/19/18 18:00 03/19/18 19:00 03/19/18 20:00 Temperature 98.2 F Pulse Rate 96 H 100 H 96 H Respiratory Rate 20 Blood Pressure 133/73 Pulse Oximetry 95 Pulse Oximetry [Exertion on Room Air] Pulse Oximetry [Exertion with Oxygen] Pulse Oximetry [Resting on Room Air] Pulse Oximetry [Resting with Oxygen] 03/19/18 21:00 03/19/18 22:00 03/19/18 23:00 Temperature 98.0 F Pulse Rate 81 75 76 Respiratory Rate 20 Blood Pressure 135/70 Pulse Oximetry 97 Pulse Oximetry [Exertion on Room Air] Pulse Oximetry [Exertion with Oxygen] Pulse Oximetry [Resting on Room Air] Pulse Oximetry [Resting with Oxygen] 03/19/18 23:57 03/20/18 00:00 03/20/18 01:00 Temperature Pulse Rate 102 H 69 Respiratory Rate Blood Pressure Pulse Oximetry 97 Pulse Oximetry [Exertion on Room Air] Pulse Oximetry [Exertion with Oxygen] Pulse Oximetry [Resting on Room Air] Pulse Oximetry [Resting with Oxygen] 03/20/18 02:00 03/20/18 03:00 03/20/18 04:00 Temperature 97.8 F Pulse Rate 66 73 67 Respiratory Rate 18 Blood Pressure 113/58 L Pulse Oximetry 97 Pulse Oximetry [Exertion on Room Air] Pulse Oximetry [Exertion with Oxygen] Pulse Oximetry [Resting on Room Air] Pulse Oximetry [Resting with Oxygen] 03/20/18 05:00 03/20/18 05:53 03/20/18 07:00 Temperature Pulse Rate 91 H 66 67 Respiratory Rate Blood Pressure Pulse Oximetry Pulse Oximetry [Exertion on Room Air] Pulse Oximetry [Exertion with Oxygen] Pulse Oximetry [Resting on Room Air] Pulse Oximetry [Resting with Oxygen] 03/20/18 08:00 03/20/18 08:59 03/20/18 09:00 Temperature 97.6 F Pulse Rate 67 84 Respiratory Rate 18 Blood Pressure 113/55 L Pulse Oximetry 97 97 Pulse Oximetry [Exertion on Room Air] Pulse Oximetry [Exertion with Oxygen] Pulse Oximetry [Resting on Room Air] Pulse Oximetry [Resting with Oxygen] 03/20/18 10:00 03/20/18 11:00 Temperature Pulse Rate 77 72 Respiratory Rate Blood Pressure Pulse Oximetry Pulse Oximetry [Exertion on Room Air] Pulse Oximetry [Exertion with Oxygen] Pulse Oximetry [Resting on Room Air] Pulse Oximetry [Resting with Oxygen] Intake & Output 03/19/18 03/20/18 03/20/18 18:59 06:59 18:59 Intake Total 740 / 740 480 / 480 100 / 100 Output Total 900 / 900 700 / 700 Balance -160 / -160 -220 / -220 100 / 100 Weight 43.7 kg 46 kg Intake: IV 100 / 100 100 / 100 INVanz Inj 1,000 MG In NS Inj 100 / 100 100 / 100 100 ML @ 200 mls/hr IV.SIG Q24H [facility] Rx#:[id number] Oral 640 / 640 480 / 480 Output: Urine 900 / 900 700 / 700 Other: Date of Last Bowel Movement 03/19/18 03/20/18 # Bowel Movements 1 Narrative: GENERAL: AAOx3, no acute distress, thin SKIN: Warm and dry, no rashes. HEAD: Atraumatic. Normocephalic. EYES: Pupils equal, round, reactive to light. No scleral icterus. No injection or drainage. ENT: No nasal bleeding or discharge. Moist mucous membranes. Nonerythematous oropharynx. NECK: Trachea midline. No JVD. Thyroid size within normal limits. CARDIOVASCULAR: Regular rate and rhythm. No murmur, no gallops, no rubs. RESPIRATORY: Chronic congestive sounds of bronchiectasis in bilateral lobes. No accessory muscle use. GASTROINTESTINAL: Abdomen soft, non-tender, nondistended, normal active bowel sounds. Hepatic and splenic margins not palpable. MUSCULOSKELETAL: . No obvious deformities. No edema. NEUROLOGICAL: Awake and alert. No obvious cranial nerve deficits. Motor grossly within normal limits. No focal deficits. Five out of 5 muscle strength in the arms and legs. Normal speech. PSYCHIATRIC: Appropriate mood and affect; insight and judgment normal. Results - Labs CBC & Chem 7: 03/20/18 06:00 03/20/18 06:00 Laboratory Results - last 24 hr 03/20/18 03/20/18 06:00 06:00 WBC 8.1 RBC 4.00 Hgb 12.2 Hct 36.5 MCV 91.2 MCH 30.5 MCHC 33.5 RDW 13.4 Plt Count 93 L MPV 9.5 Sodium 143 Potassium 3.6 Chloride 103 Carbon Dioxide 31.7 Anion Gap 8 BUN 18 Creatinine 0.84 Estimated GFR 65 L Random Glucose 81 Calcium 7.7 L - Procedures none Assessment and Plan - Plan Supraventricular tachycardia Required 3 doses of adenosine in the emergency department. Converted on diltiazem drip. Continue extended release oral Cardizem Heart rate has been stable, patient was discharged yesterday but remains for placement Chronic bronchitis with resistant organism Continuing ertapenem, continue until 03/26/2018 Pelvic pain nondisplaced left pubic rami fx; ortho recommending conservative management Patient is awaiting placement at rehab center Discharge planning Discharged, facility placement pending
--- NOTE | 2018-03-20 13:59 | P.PNCA ---
Subjective Interval history: alert in nad Medications and Allergies Active Medications: Active Medications Al Hydroxide/Mg Hydroxide (Milk Of Magnesia Liq) 30 ml PO Q12H PRN PRN Reason: Mild Constipation Albuterol (Ventolin Hfa Inh) 2 puff INH Q6H PRN PRN Reason: SHORTNESS OF BREATH Bisacodyl (Dulcolax Supp) 10 mg RECTAL DAILY PRN PRN Reason: SEVERE CONSITIPATION Diltiazem HCl (Cardizem Cd 24hr) 180 mg PO HS [facility] Last Admin: 03/19/18 20:13 Dose: 180 mg Guaifenesin (Mucinex Er) 600 mg PO BID [facility] Last Admin: 03/20/18 08:21 Dose: 600 mg Diltiazem HCl 125 mg/ Sodium (Chloride) 125 mls @ 5 mls/hr IV.CONT TITRATE PRN ; Protocol PRN Reason: Per Protocol Last Titration: 03/16/18 15:30 Dose: 0 mg/hr, 0 mls/hr Ertapenem 1,000 mg/ Sodium (Chloride) 100 mls @ 200 mls/hr IV.SIG Q24H [facility] Last Infusion: 03/20/18 09:00 Dose: Infused Lactulose (Lactulose Liq) 30 ml PO DAILY PRN PRN Reason: SEVERE CONSITIPATION Sennosides (Senokot) 17.2 mg PO Q12H PRN PRN Reason: Moderate Constipation Allergies Allergy/AdvReac Type Severity Reaction Status Date / Time sulfamethoxazole Allergy Tachycardia Verified 03/15/18 18:58 [From Bactrim] trimethoprim [From Bactrim] Allergy Tachycardia Verified 03/15/18 18:58 *MDRO Multi-Drug Resistant AdvReac Unknown n/a Uncoded 03/15/18 13:02 Organism Home Medications Medication Instructions Recorded Confirmed Type diltiazem HCl 120 mg PO HS 01/15/18 03/15/18 History Physical Exam Vital signs: Vital Signs 03/19/18 14:00 03/19/18 15:00 03/19/18 16:00 Temperature 97.6 F Pulse Rate 93 H 98 H 89 Respiratory Rate 18 Blood Pressure 116/68 Pulse Oximetry 93 L 03/19/18 17:00 03/19/18 18:00 03/19/18 19:00 Temperature 98.2 F Pulse Rate 100 H 96 H 100 H Respiratory Rate 20 Blood Pressure 133/73 Pulse Oximetry 95 03/19/18 20:00 03/19/18 21:00 03/19/18 22:00 Temperature Pulse Rate 96 H 81 75 Respiratory Rate Blood Pressure Pulse Oximetry 03/19/18 23:00 03/19/18 23:57 03/20/18 00:00 Temperature 98.0 F Pulse Rate 76 102 H Respiratory Rate 20 Blood Pressure 135/70 Pulse Oximetry 97 97 03/20/18 01:00 03/20/18 02:00 03/20/18 03:00 Temperature 97.8 F Pulse Rate 69 66 73 Respiratory Rate 18 Blood Pressure 113/58 L Pulse Oximetry 97 03/20/18 04:00 03/20/18 05:00 03/20/18 05:53 Temperature Pulse Rate 67 91 H 66 Respiratory Rate Blood Pressure Pulse Oximetry 03/20/18 07:00 03/20/18 08:00 03/20/18 08:59 Temperature 97.6 F Pulse Rate 67 67 Respiratory Rate 18 Blood Pressure 113/55 L Pulse Oximetry 97 97 03/20/18 09:00 03/20/18 10:00 03/20/18 11:00 Temperature Pulse Rate 84 77 72 Respiratory Rate Blood Pressure Pulse Oximetry 03/20/18 12:00 03/20/18 13:00 Temperature 97.4 F L Pulse Rate 80 84 Respiratory Rate 18 Blood Pressure 128/67 Pulse Oximetry 99 Intake & Output 03/19/18 03/20/18 03/20/18 18:59 06:59 18:59 Intake Total 740 / 740 480 / 480 100 / 100 Output Total 900 / 900 700 / 700 Balance -160 / -160 -220 / -220 100 / 100 Weight 43.7 kg 46 kg Intake: IV 100 / 100 100 / 100 INVanz Inj 1,000 MG In NS Inj 100 / 100 100 / 100 100 ML @ 200 mls/hr IV.SIG Q24H [facility] Rx#:[id number] Oral 640 / 640 480 / 480 Output: Urine 900 / 900 700 / 700 Other: Date of Last Bowel Movement 03/19/18 03/20/18 # Bowel Movements 1 Results 03/20/18 06:00 03/20/18 06:00 CBC 03/19/18 03/20/18 Range/Units 05:10 06:00 WBC 10.0 8.1 (4.0-11.0) th/mm3 RBC 4.17 4.00 (4.00-5.30) mil/mm3 Hgb 12.8 12.2 (11.6-15.3) gm/dL Hct 37.8 36.5 (35.0-46.0) % Plt Count 90 L 93 L (150-450) th/mm3 Comprehensive Metabolic Panel 03/19/18 03/20/18 Range/Units 05:10 06:00 Sodium 140 143 (136-145) meq/L Potassium 3.7 3.6 (3.5-5.1) meq/L Chloride 102 103 (98-107) meq/L Carbon Dioxide 31.1 31.7 (21.0-32.0) meq/L BUN 17 18 (7-18) mg/dL Creatinine 0.87 0.84 (0.50-1.00) mg/dL Calcium 8.4 L 7.7 L (8.5-10.1) mg/dL Intake and Output 03/19/18 03/20/18 03/20/18 22:59 06:59 14:59 Intake Total 640 / 640 480 / 480 100 / 100 Output Total 900 / 900 700 / 700 Balance -260 / -260 -220 / -220 100 / 100 Intake: IV 100 / 100 INVanz Inj 1,000 MG In NS Inj 100 / 100 100 ML @ 200 mls/hr IV.SIG Q24H [facility] Rx#:[id number] Oral 640 / 640 480 / 480 Output: Urine 900 / 900 700 / 700 Other: Date of Last Bowel Movement 03/19/18 03/20/18 # Bowel Movements 1 Weight 43.7 kg 46 kg Assessment and Plan - Assessment (1) SVT (supraventricular tachycardia) Code(s): I47.1 - Supraventricular tachycardia Status: Acute (2) Acute hip pain Code(s): M25.559 - Pain in unspecified hip Status: Acute (3) Inferior pubic ramus fracture Code(s): S32.599A - Other specified fracture of unspecified pubis, initial encounter for closed fracture Status: Acute (4) History of bronchoscopy Code(s): Z98.890 - Other specified postprocedural states Status: Acute (5) SVT (supraventricular tachycardia) Code(s): I47.1 - Supraventricular tachycardia Status: Acute - Plan 1.) SVT - no further events events on cardizem cd 180 mg qd, d/w patient, advised her to f/u with me in the office [place]
[2018-03-20 16:22] VITALS: BP 134/75; PULSE 100; TEMP 97.6; O2SAT 94
== END 2018-03-20 17:00 ==
LOC: NEPC 17:56 → NEDA 17:56 → HCIS 23:50
PROVIDERS: ADMIT Family Medicine; ATTEND Family Medicine